=== PATIENT | male | born 1945 | race American Indian/Alaskan Native ===

== ENCOUNTER 2018-07-23 17:36 | Inpatient (IN) | payer MEDICARE, OTHER ==
[2018-07-23 17:37] VITALS: BMI 27.3
--- NOTE | 2018-07-23 18:13 | ED PDOC ---
Arrival/HPI - General Chief Complaint: Dizziness/Lightheaded Time Seen by Provider: 07/23/18 17:56 Historian: Patient, Family - History of Present Illness Narrative History of Present Illness (Text): 07/23/18 18:10 72yr old male with hx of renal failure on dialysis, CHF presents today brought in by his daughter for worsening generalized weakness, continued dizziness/unsteady gait, increasing forgetfulness over the past week or so. Patient denies headaches dizziness or weakness. No chest pain or shortness of breath. No fevers or chills. No abdominal pain. No urinary symptoms. Pt states he feels off balance. Past Medical History - Provider Review Nursing Documentation Reviewed: Yes - Travel History Have you recently traveled outside [place] w/in the past 3 mons?: No - Infectious Disease Hx of Infectious Diseases: None - Cardiac Hx Cardiac Disorders: No Hx Hypertension: Yes Hx Pacemaker: No Other/Comment: bradycardia - Pulmonary Hx Respiratory Disorders: Yes Hx Asthma: No Hx Chronic Obstructive Pulmonary Disease (COPD): No Hx Emphysema: No Hx Lung Cancer: No Hx Pneumonia: Yes Hx Pulmonary Edema: No Hx Pulmonary Embolism: No Hx Respiratory Aspiration: No Hx Respiratory Tract Infection: No Hx Sleep Apnea: No Hx Tuberculosis: No - Neurological Hx Neurological Disorder: No Hx Alzheimer's Disease: No HX Cerebrovascular Accident: No Hx Dementia: No Hx Dizziness: No Hx Meningitis: No Hx Migraine: No Hx Multiple Sclerosis: No Hx Paralysis: No - HEENT Hx HEENT Disorder: No Hx Blind: No Hx Cataracts: No Hx Deafness: No Hx Difficulty Chewing: No Hx Epistaxis: No Hx Glaucoma: No Hx Macular Degeneration: No - Renal Hx Renal Disorder: Yes (CKD IV) - Endocrine/Metabolic Hx Endocrine Disorders: No - Hematological/Oncological Hx Blood Disorders: No Hx Blood Transfusions: No Hx Blood Transfusion Reaction: No - Integumentary Hx Dermatological Disorder: No - Musculoskeletal/Rheumatological Hx Musculoskeletal Disorders: Yes Hx Arthritis: Yes Hx Degenerative Joint Disease: No Hx Falls: No Hx Fractures: No Hx Gout: Yes Hx Herniated Disk: No Hx Myasthenia Gravis: No Hx Osteoarthritis: No Hx Osteomyelitis: No Hx Osteoporosis: No Hx Rhabdomyolysis: No Hx Rheumatoid Arthritis: No Hx Spinal Stenosis: No Hx Unsteady Gait: No - Gastrointestinal Hx Gastrointestinal Disorders: No - Genitourinary/Gynecological Hx Genitourinary Disorders: Yes Hx Bladder Cancer: No Hx Bladder Stone: No Hx Hematuria: No Hx Incontinence: No Hx Prostate Cancer: Yes Hx Prostate Problems: No Hx Reproductive Disorders: No (bph,) Hx Sexually Transmitted Diseases: No Hx Urinary Tract Infection: No - Psychiatric Hx Substance Use: No - Surgical History Other/Comment: Patient states he had "Sub-mucous nasal resection" - Anesthesia Hx Anesthesia: Yes Hx Anesthesia Reactions: No Hx Malignant Hyperthermia: No - Suicidal Assessment Feels Threatened In Home Enviroment: No Family/Social History - Physician Review Nursing Documentation Reviewed: Yes Family/Social History: Unknown Family HX Smoking Status: Former Smoker Hx Alcohol Use: No Hx Substance Use: No Hx Substance Use Treatment: No Allergies/Home Meds Allergies/Adverse Reactions: Allergies No Known Allergies Allergy (Verified 09/28/11 11:08) Home Medications: Home Meds Medication Instructions Recorded Confirmed Aspirin [Aspir 81] 81 mg PO DAILY 09/28/11 02/09/14 Silodosin [Rapaflo] 8 mg PO DAILY 09/28/11 02/09/14 Simvastatin 20 mg PO DAILY 09/28/11 02/09/14 Carvedilol [Coreg] 25 mg PO DAILY 07/23/18 07/23/18 Donepezil [Aricept] 5 mg PO 07/23/18 Folic Acid/Vit B Complex and C 0.8 mg PO DAILY 07/23/18 07/23/18 [Gauri-Sai Tablet] Gabapentin [Neurontin] 100 mg PO 07/23/18 Montelukast [Singulair] 10 mg PO DAILY 07/23/18 07/23/18 Sevelamer Carbonate [Renvela] 800 mg pe PO DAILY 07/23/18 07/23/18 Review of Systems - Review of Systems Constitutional: absent: Fatigue, Fevers ENT: absent: Sore Throat, Sinus Congestion Respiratory: absent: SOB, Cough Cardiovascular: absent: Chest Pain, Palpitations Gastrointestinal: absent: Abdominal Pain, Nausea, Vomiting Genitourinary Male: absent: Dysuria, Frequency, Hematuria Musculoskeletal: absent: Arthralgias, Neck Pain Skin: absent: Rash, Pruritis Neurological: Dizziness. absent: Headache Psychiatric: absent: Anxiety, Depression Physical Exam Vital Signs Reviewed: Yes Vital Signs Temp Pulse Resp BP Pulse Ox 07/23/18 17:56 97.3 F L 70 18 172/75 H 98 07/23/18 17:39 97.3 F L 70 18 172/75 H 98 Temperature: Afebrile Blood Pressure: Hypertensive Pulse: Regular Respiratory Rate: Normal Appearance: Positive for: Well-Appearing, Non-Toxic, Comfortable Pain Distress: None Mental Status: Positive for: other (alert and oriented x 2) - Systems Exam Head: Present: Atraumatic Pupils: Present: PERRL Extroacular Muscles: Present: EOMI Mouth: Present: Moist Mucous Membranes Neck: Present: Normal Range of Motion Respiratory/Chest: Present: Clear to Auscultation, Good Air Exchange. No: Respi ratory Distress, Accessory Muscle Use Cardiovascular: Present: Regular Rate and Rhythm, Normal S1, S2. No: Murmurs Abdomen: No: Tenderness, Distention, Peritoneal Signs, Rebound, Guarding Back: Present: Normal Inspection Upper Extremity: Present: Normal ROM Lower Extremity: Present: Normal ROM Neurological: Present: Motor Func Grossly Intact, Normal Sensory Function Skin: Present: Warm, Dry, Normal Color. No: Rashes Psychiatric: Present: Alert Medical Decision Making ED Course and Treatment: 07/23/18 18:12 72yr old male with dizziness and generalized weakness worsening x 1 week vitals stable. slightly hypertensive. denies any cp or sob. cbc: wnl cmp elevated bun/cr trop: 0.09 ekg; electronic ventricular pacemaker at 77 bpm cxr; slight vascular congestion head ct; FINDINGS: BRAIN No acute intraparenchymal hemorrhage. No mass lesion. No CT evidence for acute territorial infarct. No midline shift or extra-axial collections. VENTRICLES: No hydrocephalus. ORBITS: The orbits are unremarkable. SINUSES AND MASTOIDS: The paranasal sinuses and mastoid air cells are clear. BONES: No fracture. SOFT TISSUES: Unremarkable. IMPRESSION: No acute intracranial abnormality. Electronically signed on Jul 23, 2018 7:23:38 PM EDT by: Emmanuel Jorge M.D., Certified by [facility], Diagnostic Radiology asa given Po 07/23/18 20:[address] collier; accepts obs admission to remote tele. impression; dizziness, AMS, ESRD on dialysis admit remote tele obs. Reassessment Condition: Re-examined, Unchanged - RAD Interpretation Radiology Orders: 07/23/18 18:06 HEAD W/O CONTRAST [CT] Stat CHEST PORTABLE [RAD] Stat Disposition/Present on Arrival - Present on Arrival Any Indicators Present on Arrival: No History of DVT/PE: No History of Uncontrolled Diabetes: No Urinary Catheter: No History of Decub. Ulcer: No History Surgical Site Infection Following: None - Disposition Have Diagnosis and Disposition been Completed?: Yes Diagnosis: Dizziness, ESRD (end stage renal disease) on dialysis, Altered mental status Disposition: HOSPITALIZED Disposition Time: 18:58 Patient Plan: Observation Patient Problems: Current Active Problems Problem Status Onset Dizziness Acute ESRD (end stage renal disease) on dialysis Acute Condition: FAIR
[2018-07-23 18:51] LABS: BASO # 0.01 K/mm3 (0.0-2.0); BASO % 0.2 % (0.0-3.0); EOS % 0.3 % (1.5-5.0); HEMOGLOBIN 11.4 g/dL (14.0-18.0); LYMPH % 15.8 % (22.0-35.0); MEAN CELL VOLUME 84.1 fl (80.0-105.0); MEAN CORPUSCULAR HEMOGLOBIN 26.3 pg (25.0-35.0); MEAN CORPUSCULAR HGB CONC 31.3 g/dl (31.0-37.0); MEAN PLATELET VOLUME 10.6 fl (7.0-11.0); MONO # 0.6 (0.1-0.6); RBC 4.33 10^6/uL (3.5-6.1); RED CELL DISTRIBUTION WIDTH 16.4 % (11.5-14.5); WHITE BLOOD COUNT 6.1 10^3/uL (4.5-11.0)
[2018-07-23 18:56] LABS: INR 1.11; PARTIAL THROMBOPLASTIN TIME 29.4 Seconds (26.9-38.3); PROTHROMBIN TIME 12.3 SECONDS (9.4-12.5)
[2018-07-23 18:57] LABS: TROPONIN I 0.09 ng/mL
[2018-07-23 19:31] LABS: ALB/GLOB RATIO 1.1 (1.1-1.8); ALBUMIN 3.9 g/dL (3.0-4.8); CALCIUM 9.3 mg/dL (8.4-10.5)
--- NOTE | 2018-07-23 22:18 | CP.PCM.HP ---
<Ari Tang - Last Filed: 07/23/18 22:54> History of Present Illness - History of Present Illness History of Present Illness: Ari Tang DO, PGY-1 Hospitalist Admission History and Physical for Dr. 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 On examination, patient is alert to self and was able to recall the month but unable to recall the year and was not oriented to situation. History was obtained by speaking with daughter and EMR review. Per patient's daughter, patient had HD last Tuesday and presented to PMD with concern of worsening weakness/confusion on Tuesday. Since then, his generalized weakness/confusion has worsened. 12-point ROS unable to be obtained due to patient's mental status. 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), CKD (on MWF HD), severe pulmonary HTN (last TTE in 2013), and HTN Past Surgical History: PPM insertion Allergies: NKA Home medications: Simvastatin 20 mg daily, Rapaflo 8 mg daily, Renvela 800 mg AC, Singulair 10 mg daily, Gabapentin 100 mg daily, Folic acid 0.8 mg daily, Aricept 5 mg daily, Coreg 25 mg daily, ASA 81 mg daily Family History: reviewed, non-contributory Social History: denies current or prior tobacco, EtOH, drug use Present on Admission - Present on Admission Any Indicators Present on Admission: No History of DVT/PE: No History of Uncontrolled Diabetes: No Urinary Catheter: No Decubitus Ulcer Present: No Review of Systems - Review of Systems Systems not reviewed;Unavailable: Altered Mental Status Past Patient History - Infectious Disease Hx of Infectious Diseases: None - Past Medical History & Family History Past Medical History?: Yes - Past Social History Smoking Status: Former Smoker - CARDIAC Hx Cardiac Disorders: No Hx Hypertension: Yes Hx Pacemaker: No Other/Comment: bradycardia - PULMONARY Hx Respiratory Disorders: Yes Hx Asthma: No Hx Chronic Obstructive Pulmonary Disease (COPD): No Hx Emphysema: No Hx Lung Cancer: No Hx Pneumonia: Yes Hx Pulmonary Edema: No Hx Pulmonary Embolism: No Hx Respiratory Aspiration: No Hx Respiratory Tract Infection: No Hx Sleep Apnea: No Hx Tuberculosis: No - NEUROLOGICAL Hx Neurological Disorder: No Hx Alzheimer's Disease: No HX Cerebrovascular Accident: No Hx Dementia: No Hx Dizziness: No Hx Meningitis: No Hx Migraine: No Hx Multiple Sclerosis: No Hx Paralysis: No - HEENT Hx HEENT Problems: No Hx Blind: No Hx Cataracts: No Hx Deafness: No Hx Difficulty Chewing: No Hx Epistaxis: No Hx Glaucoma: No Hx Macular Degeneration: No - RENAL Hx Chronic Kidney Disease: Yes (CKD IV) - ENDOCRINE/METABOLIC Hx Endocrine Disorders: No - HEMATOLOGICAL/ONCOLOGICAL Hx Blood Disorders: No Hx Blood Transfusions: No Hx Blood Transfusion Reaction: No - INTEGUMENTARY Hx Dermatological Problems: No - MUSCULOSKELETAL/RHEUMATOLOGICAL Hx Musculoskeletal Disorders: Yes Hx Arthritis: Yes Hx Degenerative Joint Disease: No Hx Falls: No Hx Fractures: No Hx Gout: Yes Hx Herniated Disk: No Hx Myasthenia Gravis: No Hx Osteoarthritis: No Hx Osteomyelitis: No Hx Osteoporosis: No Hx Rhabdomyolysis: No Hx Rheumatoid Arthritis: No Hx Spinal Stenosis: No Hx Unsteady Gait: No - GASTROINTESTINAL Hx Gastrointestinal Disorders: No - GENITOURINARY/GYNECOLOGICAL Hx Genitourinary Disorders: Yes Hx Bladder Cancer: No Hx Bladder Stone: No Hx Hematuria: No Hx Incontinence: No Hx Prostate Cancer: Yes Hx Prostate Problems: No Hx Reproductive Disorders: No (bph,) Hx Sexually Transmitted Disorders: No Hx Urinary Tract Infection: No - PSYCHIATRIC Hx Substance Use: No - SURGICAL HISTORY Other/Comment: Patient states he had "Sub-mucous nasal resection" - ANESTHESIA Hx Anesthesia: Yes Hx Anesthesia Reactions: No Hx Malignant Hyperthermia: No Meds Allergies/Adverse Reactions: Allergies Allergy/AdvReac Type Severity Reaction Status Date / Time No Known Allergies Allergy Verified 09/28/11 11:08 Physical Exam - Constitutional Appears: No Acute Distress Additional comments: Alert to self and able to answer the month but unable to answer year and not oriented to situation - Head Exam Head Exam: ATRAUMATIC, NORMOCEPHALIC - Eye Exam Eye Exam: EOMI, PERRL - ENT Exam ENT Exam: Mucous Membranes Moist - Neck Exam Neck exam: Positive for: Full Rom, Normal Inspection - Respiratory Exam Respiratory Exam: Clear to Auscultation Bilateral, NORMAL BREATHING PATTERN. absent: Accessory Muscle Use, Decreased Breath Sounds, Rhonchi, Wheezes, Respiratory Distress - Cardiovascular Exam Cardiovascular Exam: REGULAR RHYTHM, RRR, +S1, +S2. absent: Diastolic murmur, Gallop, Rubs, Systolic Murmur Additional comments: PPM visualized left upper sternum - GI/Abdominal Exam GI & Abdominal Exam: Normal Bowel Sounds, Soft. absent: Guarding, Rebound, Tenderness - Extremities Exam Extremities exam: Positive for: full ROM, pedal pulses present. Negative for: pedal edema - Back Exam Back exam: NORMAL INSPECTION - Neurological Exam Neurological exam: Alert, Altered, CN II-XII Intact Additional comments: Muscle strength 5/5 b/l upper and lower extremities, no sensory deficits - Psychiatric Exam Psychiatric exam: Anxious - Skin Skin Exam: Dry, Warm Results - Vital Signs Recent Vital Signs: Last Vital Signs Temp 97.3 F L 07/23/18 17:56 Pulse 72 07/23/18 21:50 Resp 18 07/23/18 21:50 BP 148/60 07/23/18 21:50 Pulse Ox 99 07/23/18 21:50 - Labs Result Diagrams: 07/23/18 18:15 07/23/18 18:15 Labs: Laboratory Results - last 24 hr 07/23/18 07/23/18 07/23/18 18:15 18:15 18:15 WBC 6.1 RBC 4.33 Hgb 11.4 L Hct 36.4 L MCV 84.1 MCH 26.3 MCHC 31.3 RDW 16.4 H Plt Count 218 MPV 10.6 Neut % (Auto) 74.7 H Lymph % (Auto) 15.8 L Angelina % (Auto) 9.0 H Eos % (Auto) 0.3 L Baso % (Auto) 0.2 Lymph # (Auto) 1.0 L Angelina # (Auto) 0.6 Eos # (Auto) 0.0 Baso # (Auto) 0.01 Absolute Neuts (auto) 4.58 PT 12.3 INR 1.11 APTT 29.4 Sodium 143 Potassium 3.7 Chloride 103 Carbon Dioxide 28 Anion Gap 16 BUN 40 H Creatinine 11.1 H* Est GFR ( Amer) 6 Est GFR (Non-Af Amer) 5 Random Glucose 112 H Calcium 9.3 Total Bilirubin 0.5 AST 20 ALT 10 Alkaline Phosphatase 79 Lactate Dehydrogenase 428 Total Creatine Kinase 52 Troponin I 0.09 Total Protein 7.3 Albumin 3.9 Globulin 3.4 Albumin/Globulin Ratio 1.1 Assessment & Plan - Assessment and Plan (Free Text) Assessment: 72 yo M with PMH of 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 and contact whether MRI is safe prior to ordering MRI Screening video EEG F/u orthostatic VS results to r/o dehydration/excessive fluid loss from HD Will straight cath x 1 with UA and Urine cx F/u cisneros cx, procal F/u B12, folate levels Trend troponin q6h x 2 PT evaluate and treat for weakness/gait instability Neurology consult placed, all recs appreciated Severe Pulmonary HTN Identified on TTE completed for admission in 02/2014 Patient was admitted at that time with SOB Unclear etiology, may be 2/2 diastolic CHF Patient currently denies CP, SOB Will repeat TTE CKD HD Dependent Patient normally gets MWF dialysis BUN/Cr elevated this admission but unclear baseline Lower suspicion for uremic encephalitis with BUN of 40 Will need arrangements for HD tomorrow Nephrology consult placed, all recs appreciated DVT/GI PPX: SC heparin/protonix Full Code NPO pending swallow evaluation Monitor on telemetry Patient seen, examined with, and plan discussed with my attending Dr. Myles Tang, Karina.O. IM Resident PGY-1 <Micheal Bueno - Last Filed: 07/24/18 06:45> Results - Vital Signs Recent Vital Signs: Last Vital Signs Temp 98.2 F 07/24/18 06:00 Pulse 83 07/24/18 06:00 Resp 20 07/24/18 06:00 BP 142/83 07/24/18 06:00 Pulse Ox 97 07/24/18 06:00 - Labs Result Diagrams: 07/23/18 18:15 07/23/18 18:15 Labs: Laboratory Results - last 24 hr 07/23/18 07/23/18 07/23/18 18:15 18:15 18:15 WBC 6.1 RBC 4.33 Hgb 11.4 L Hct 36.4 L MCV 84.1 MCH 26.3 MCHC 31.3 RDW 16.4 H Plt Count 218 MPV 10.6 Neut % (Auto) 74.7 H Lymph % (Auto) 15.8 L Angelina % (Auto) 9.0 H Eos % (Auto) 0.3 L Baso % (Auto) 0.2 Lymph # (Auto) 1.0 L Angelina # (Auto) 0.6 Eos # (Auto) 0.0 Baso # (Auto) 0.01 Absolute Neuts (auto) 4.58 PT 12.3 INR 1.11 APTT 29.4 pCO2 pO2 HCO3 ABG pH ABG Total CO2 ABG O2 Saturation ABG O2 Content ABG Base Excess ABG Hemoglobin ABG Carboxyhemoglobin POC ABG HHb (Measured) ABG Methemoglobin ABG O2 Capacity Hgb O2 Saturation FiO2 Sodium 143 Potassium 3.7 Chloride 103 Carbon Dioxide 28 Anion Gap 16 BUN 40 H Creatinine 11.1 H* Est GFR ( Amer) 6 Est GFR (Non-Af Amer) 5 Random Glucose 112 H Calcium 9.3 Total Bilirubin 0.5 AST 20 ALT 10 Alkaline Phosphatase 79 Lactate Dehydrogenase 428 Total Creatine Kinase 52 Troponin I 0.09 Total Protein 7.3 Albumin 3.9 Globulin 3.4 Albumin/Globulin Ratio 1.1 07/23/18 07/24/18 23:30 04:59 WBC RBC Hgb Hct MCV MCH MCHC RDW Plt Count MPV Neut % (Auto) Lymph % (Auto) Angelina % (Auto) Eos % (Auto) Baso % (Auto) Lymph # (Auto) Angelina # (Auto) Eos # (Auto) Baso # (Auto) Absolute Neuts (auto) PT INR APTT pCO2 40 pO2 85.0 HCO3 29.1 H ABG pH 7.47 H ABG Total CO2 30.3 H ABG O2 Saturation 97.5 ABG O2 Content 14.4 L ABG Base Excess 5.0 H ABG Hemoglobin 10.7 L ABG Carboxyhemoglobin 1.5 POC ABG HHb (Measured) 2.4 ABG Methemoglobin 1.0 ABG O2 Capacity 14.8 L Hgb O2 Saturation 95.1 FiO2 21.0 Sodium Potassium Chloride Carbon Dioxide Anion Gap BUN Creatinine Est GFR ( Amer) Est GFR (Non-Af Amer) Random Glucose Calcium Total Bilirubin AST ALT Alkaline Phosphatase Lactate Dehydrogenase Total Creatine Kinase Troponin I 0.10 Total Protein Albumin Globulin Albumin/Globulin Ratio Attending/Attestation - Attestation I have personally seen and examined this patient.: Yes I have fully participated in the care of the patient.: Yes I have reviewed all pertinent clinical information: Yes Notes (Text): 07/24/18 06:44 Seen and examined and discussed with resident. Exam significant for altered mental status, unclear speech and keeps on repeating self. A&P as above.
[2018-07-24 05:05] LABS: ARTERIAL BLOOD GAS HCO3 29.1 mmol/L (21-28); ARTERIAL BLOOD GAS HEMOGLOBIN 10.7 g/dL (11.7-17.4); ARTERIAL BLOOD GAS O2 CAPACITY 14.8 mL/dl (16-24); ARTERIAL BLOOD GAS O2 CONTENT 14.4 ML/dl (15-23); ARTERIAL BLOOD GAS O2 SAT 97.5 % (95-98); ARTERIAL BLOOD GAS PCO2 40 mm/Hg (35-45); ARTERIAL BLOOD GAS PH 7.47 (7.35-7.45); ARTERIAL BLOOD GAS TCO2 30.3 mmol.L (22-28)
[2018-07-24] MEDS: Pantoprazole 40 mg EC Tab PO SCH (05:29)
[2018-07-24 07:35] LABS: BASO # 0.03 K/mm3 (0.0-2.0); BASO % 0.5 % (0.0-3.0); EOS # 0.1 (0.0-0.7); EOS % 1.4 % (1.5-5.0); HEMOGLOBIN 10.5 g/dL (14.0-18.0); LYMPH # 1.3 (1.2-3.4); LYMPH % 22.3 % (22.0-35.0); MEAN CELL VOLUME 83.7 fl (80.0-105.0); MEAN CORPUSCULAR HEMOGLOBIN 25.9 pg (25.0-35.0); MEAN PLATELET VOLUME 11.3 fl (7.0-11.0); MONO # 0.5 (0.1-0.6); MONO % 7.9 % (1.0-6.0); RBC 4.05 10^6/uL (3.5-6.1); RED CELL DISTRIBUTION WIDTH 16.7 % (11.5-14.5); WHITE BLOOD COUNT 5.7 10^3/uL (4.5-11.0)
[2018-07-24 08:00] LABS: TROPONIN I 0.11 ng/mL
[2018-07-24 08:08] LABS: LDL CHOLESTEROL 51 mg/dL (0-129)
[2018-07-24 08:10] LABS: ALB/GLOB RATIO 1.1 (1.1-1.8); ALBUMIN 3.7 g/dL (3.0-4.8); ALT/SGPT < 6 U/L (7-56); AST/SGOT 12 U/L (17-59); BLOOD UREA NITROGEN 46 mg/dL (7-21); CALCIUM 9.4 mg/dL (8.4-10.5); GFR NON-AFRICAN AMERICAN 4; HDL CHOLESTEROL 55 mg/dL (29-60)
[2018-07-24] MEDS: Multivitamin Vitamin B Complex (Nephro-Vite) Tab PO SCH (09:17)
--- NOTE | 2018-07-24 09:17 | CT ---
Date of service: 07/23/2018 PROCEDURE: CT HEAD WITHOUT CONTRAST. HISTORY: Dizziness and weakness. COMPARISON: None available. TECHNIQUE: Axial computed tomography images were obtained through the head/brain without intravenous contrast. Radiation dose: Total exam DLP = 879.49 mGy-cm. This CT exam was performed using one or more of the following dose reduction techniques: Automated exposure control, adjustment of the mA and/or kV according to patient size, and/or use of iterative reconstruction technique. FINDINGS: HEMORRHAGE: No acute parenchymal, subarachnoid nor extra-axial hemorrhage. BRAIN: Moderate diffuse and confluent chronic periventricular white matter ischemic changes seen extending peripherally into the deep and subcortical white matter both cerebral hemispheres. There are multiple more discrete chronic appearing lacunar type infarcts scattered about both basal nuclei. Note that the possibility of a small hyperacute infarct not excluded. Moderate to fairly significant generalized volume loss Vascular calcifications both carotid siphons No obvious parenchymal nor extra-axial masses or collections seen on this noncontrast exam VENTRICLES: No obstructive hydrocephalus. CALVARIUM: Calvarium intact. PARANASAL SINUSES: Unremarkable as visualized. No significant inflammatory changes. MASTOID AIR CELLS: Unremarkable as visualized. No inflammatory changes. OTHER FINDINGS: None. IMPRESSION: Moderate diffuse and confluent chronic periventricular white matter ischemic changes seen extending peripherally into the deep and subcortical white matter both cerebral hemispheres. There are multiple more discrete chronic appearing lacunar type infarcts scattered about both basal nuclei. Note that the possibility of a small hyperacute infarct not excluded. Moderate to fairly significant generalized volume loss
--- NOTE | 2018-07-24 09:46 | RAD ---
Date of service: 07/23/2018 HISTORY: dizziness COMPARISON: 09/29/2011 FINDINGS: LUNGS: No active pulmonary disease. PLEURA: No significant pleural effusion identified, no pneumothorax apparent. CARDIOVASCULAR: No aortic atherosclerotic calcification present. Mild cardiomegaly. Mild vascular congestion. Dual lead pacemaker OSSEOUS STRUCTURES: No significant abnormalities. VISUALIZED UPPER ABDOMEN: Normal. OTHER FINDINGS: None. IMPRESSION: Mild cardiomegaly and mild vascular congestion
--- NOTE | 2018-07-24 09:49 | CARD ---
APPROVED REPORT Date of service: 07/23/2018 EKG Measurement Heart [id number] <Conclusion> Poor data quality, interpretation may be adversely affected Electronic ventricular pacemaker
[2018-07-24 13:13] LABS: FOLATE 17.4 ng/mL
--- NOTE | 2018-07-24 13:29 | PCM.EEG ---
Electroencephalogram Report - Electroencephalogram Report Procedure Date: 07/24/18 Medication: ASA, Aricept, Ondansetron Interpretation: Technical Information: This was a 16 -channel EEG, 1-channel EKG routine EEG performed using an [employer] machine. Electrodes were applied using the 10/20 international placement system. Start; 10;07 End; 10;52 Total; 45 min Clinical Information: alter mental status During resting wakefulness there was a symmetric posterior dominant rhythm at 8.5-9.5 Hz, 30-50 uV, which was reactive to eye opening and closing. Drowsiness (1015) was associated with fragmentation of the posterior dominant rhythm and with slow roving eye movements. Hyperventilation was performe no changes in the record. Photic stimulation was performed and there were no changes on the record. Focal abnormality; none ECG was associated with a normal sinus rhythm. Impression: This is a normal awake and drowsy electroencephalogram.
--- NOTE | 2018-07-24 14:14 | CP.PCM.CON ---
<Valente Rubio - Last Filed: 07/24/18 14:23> History of Present Illness - History of Present Illness History of Present Illness: Valente Rubio PGY2 Neurology Consult Note for Dr. 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 Patient is alert to self and month, but not the year. He is unable to recall different things and unable to do perform simpl e cognitive functions. Patient denies any complaints, no chest pain, SOB, fever, chills, blurry vision, headaches or any other complaints at this time. 12-point ROS unable to be obtained due to patient's mental status. 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 absent: Chest Pain - Neurological Neurological: absent: Abnormal Speech, Confusion, Disequilibrium, Dizziness, Numbness, Focal Weakness, Frequent Falls, Headaches, Syncope, Tingling, Vertigo, Weakness Past Patient History - Infectious Disease Hx of Infectious Diseases: None - Past Medical History & Family History Past Medical History?: Yes - Past Social History Smoking Status: Former Smoker - CARDIAC Hx Cardiac Disorders: Yes (bradycardia, 3rd degree AV block, s/p pacemaker placement.) Hx Congestive Heart Failure: Yes Hx Hypertension: Yes - PULMONARY Hx Respiratory Disorders: Yes Hx Asthma: No Hx Chronic Obstructive Pulmonary Disease (COPD): No Hx Emphysema: No Hx Lung Cancer: No Hx Pneumonia: Yes Hx Pulmonary Edema: No Hx Pulmonary Embolism: No Hx Respiratory Aspiration: No Hx Respiratory Tract Infection: No Hx Sleep Apnea: No Hx Tuberculosis: No - NEUROLOGICAL Hx Neurological Disorder: No Hx Alzheimer's Disease: No HX Cerebrovascular Accident: No Hx Dementia: No Hx Dizziness: No Hx Meningitis: No Hx Migraine: No Hx Multiple Sclerosis: No Hx Paralysis: No - HEENT Hx HEENT Problems: No Hx Blind: No Hx Cataracts: No Hx Deafness: No Hx Difficulty Chewing: No Hx Epistaxis: No Hx Glaucoma: No Hx Macular Degeneration: No - RENAL Hx Renal Failure: Yes (on HD M,W,F.) - ENDOCRINE/METABOLIC Hx Endocrine Disorders: No - HEMATOLOGICAL/ONCOLOGICAL Hx Blood Disorders: No Hx Blood Transfusions: No Hx Blood Transfusion Reaction: No - INTEGUMENTARY Hx Dermatological Problems: No - MUSCULOSKELETAL/RHEUMATOLOGICAL Hx Arthritis: Yes - GASTROINTESTINAL Hx Gastrointestinal Disorders: No - GENITOURINARY/GYNECOLOGICAL Hx Genitourinary Disorders: Yes Hx Bladder Cancer: No Hx Bladder Stone: No Hx Hematuria: No Hx Incontinence: No Hx Prostate Cancer: Yes Hx Prostate Problems: No Hx Reproductive Disorders: No (bph,) Hx Sexually Transmitted Disorders: No Hx Urinary Tract Infection: No - PSYCHIATRIC Hx Substance Use: No - SURGICAL HISTORY Other/Comment: Patient states he had "Sub-mucous nasal resection" - ANESTHESIA Hx Anesthesia: Yes Hx Anesthesia Reactions: No Hx Malignant Hyperthermia: No Meds Allergies/Adverse Reactions: Allergies Allergy/AdvReac Type Severity Reaction Status Date / Time No Known Allergies Allergy Verified 09/28/11 11:08 - Medications Medications: Current Medications Acetaminophen (Tylenol 325mg Tab) 650 mg PO Q6H PRN PRN Reason: Pain, Mild (1-3) Aspirin (Ecotrin) 81 mg PO DAILY [facility] Last Admin: 07/24/18 09:17 Dose: 81 mg Atorvastatin Calcium (Lipitor) 10 mg PO DIN [facility] Donepezil HCl (Aricept) 5 mg PO DAILY [facility] Last Admin: 07/24/18 09:17 Dose: 5 mg Heparin Sodium (Porcine) (Heparin) 5,000 units SC Q8 [facility]; Protocol Last Admin: 07/24/18 05:29 Dose: 5,000 units Montelukast Sodium (Singulair) 10 mg PO DAILY [facility] Last Admin: 07/24/18 09:17 Dose: 10 mg Ondansetron HCl (Zofran Inj) 4 mg IVP Q6H PRN PRN Reason: Nausea/Vomiting Pantoprazole Sodium (Protonix Ec Tab) 40 mg PO 0600 [facility] Last Admin: 07/24/18 05:29 Dose: 40 mg Sevelamer HCl (Renagel) 800 mg PO DAILY [facility] Last Admin: 07/24/18 09:17 Dose: 800 mg Vitamin B Complex/Vit C/Folic Acid (Nephro-Sai) 1 tab PO DAILY [facility] Last Admin: 07/24/18 09:17 Dose: 1 tab Physical Exam - Constitutional Appears: Well, Non-toxic, No Acute Distress - Head Exam Head Exam: ATRAUMATIC, NORMAL INSPECTION, NORMOCEPHALIC - Eye Exam Eye Exam: EOMI, Normal appearance - ENT Exam ENT Exam: Mucous Membranes Moist - Respiratory Exam Respiratory Exam: Clear to Auscultation Bilateral, NORMAL BREATHING PATTERN - Cardiovascular Exam Cardiovascular Exam: +S1, +S2 - GI/Abdominal Exam GI & Abdominal Exam: Soft - Neurological Exam Neurological exam: Alert, CN II-XII Intact Additional comments: Unable to recall year, or past history, cerebellar function in tact, motor upper and lower intact B/L, no focal neurological deficits Results - Vital Signs Recent Vital Signs: Last Vital Signs Temp 98.2 F 07/24/18 06:00 Pulse 77 07/24/18 10:23 Resp 16 07/24/18 10:23 BP 148/74 07/24/18 10:23 Pulse Ox 96 07/24/18 10:23 - Labs Result Diagrams: 07/24/18 07:00 07/24/18 07:00 Labs: Laboratory Results - last 24 hr 07/23/18 07/23/18 07/23/18 18:15 18:15 18:15 WBC 6.1 RBC 4.33 Hgb 11.4 L Hct 36.4 L MCV 84.1 MCH 26.3 MCHC 31.3 RDW 16.4 H Plt Count 218 MPV 10.6 Neut % (Auto) 74.7 H Lymph % (Auto) 15.8 L [place] % (Auto) 9.0 H Eos % (Auto) 0.3 L Baso % (Auto) 0.2 Lymph # (Auto) 1.0 L [place] # (Auto) 0.6 Eos # (Auto) 0.0 Baso # (Auto) 0.01 Absolute Neuts (auto) 4.58 PT 12.3 INR 1.11 APTT 29.4 pCO2 pO2 HCO3 ABG pH ABG Total CO2 ABG O2 Saturation ABG O2 Content ABG Base Excess ABG Hemoglobin ABG Carboxyhemoglobin POC ABG HHb (Measured) ABG Methemoglobin ABG O2 Capacity Hgb O2 Saturation FiO2 Sodium 143 Potassium 3.7 Chloride 103 Carbon Dioxide 28 Anion Gap 16 BUN 40 H Creatinine 11.1 H* Est GFR ( Amer) 6 Est GFR (Non-Af Amer) 5 Random Glucose 112 H Hemoglobin A1c Calcium 9.3 Phosphorus Magnesium Total Bilirubin 0.5 AST 20 ALT 10 Alkaline Phosphatase 79 Lactate Dehydrogenase 428 Total Creatine Kinase 52 Troponin I 0.09 Total Protein 7.3 Albumin 3.9 Globulin 3.4 Albumin/Globulin Ratio 1.1 Triglycerides Cholesterol LDL Cholesterol Direct HDL Cholesterol Vitamin B12 Folate TSH 3rd Generation 07/23/18 07/24/18 07/24/18 23:30 04:59 07:00 WBC 5.7 RBC 4.05 Hgb 10.5 L Hct 33.9 L MCV 83.7 MCH 25.9 MCHC 31.0 RDW 16.7 H Plt Count 222 MPV 11.3 H Neut % (Auto) 67.9 Lymph % (Auto) 22.3 [place] % (Auto) 7.9 H Eos % (Auto) 1.4 L Baso % (Auto) 0.5 Lymph # (Auto) 1.3 [place] # (Auto) 0.5 Eos # (Auto) 0.1 Baso # (Auto) 0.03 Absolute Neuts (auto) 3.87 PT INR APTT pCO2 40 pO2 85.0 HCO3 29.1 H ABG pH 7.47 H ABG Total CO2 30.3 H ABG O2 Saturation 97.5 ABG O2 Content 14.4 L ABG Base Excess 5.0 H ABG Hemoglobin 10.7 L ABG Carboxyhemoglobin 1.5 POC ABG HHb (Measured) 2.4 ABG Methemoglobin 1.0 ABG O2 Capacity 14.8 L Hgb O2 Saturation 95.1 FiO2 21.0 Sodium Potassium Chloride Carbon Dioxide Anion Gap BUN Creatinine Est GFR ( Amer) Est GFR (Non-Af Amer) Random Glucose Hemoglobin A1c Calcium Phosphorus Magnesium Total Bilirubin AST ALT Alkaline Phosphatase Lactate Dehydrogenase Total Creatine Kinase Troponin I 0.10 Total Protein Albumin Globulin Albumin/Globulin Ratio Triglycerides Cholesterol LDL Cholesterol Direct HDL Cholesterol Vitamin B12 Folate TSH 3rd Generation 07/24/18 07/24/18 07/24/18 07:00 07:00 07:00 WBC RBC Hgb Hct MCV MCH MCHC RDW Plt Count MPV Neut % (Auto) Lymph % (Auto) [place] % (Auto) Eos % (Auto) Baso % (Auto) Lymph # (Auto) [place] # (Auto) Eos # (Auto) Baso # (Auto) Absolute Neuts (auto) PT INR APTT pCO2 pO2 HCO3 ABG pH ABG Total CO2 ABG O2 Saturation ABG O2 Content ABG Base Excess ABG Hemoglobin ABG Carboxyhemoglobin POC ABG HHb (Measured) ABG Methemoglobin ABG O2 Capacity Hgb O2 Saturation FiO2 Sodium 145 Potassium 3.9 Chloride 104 Carbon Dioxide 28 Anion Gap 17 BUN 46 H Creatinine 12.3 H* Est GFR ( Amer) 5 Est GFR (Non-Af Amer) 4 Random Glucose 97 Hemoglobin A1c 5.1 Calcium 9.4 Phosphorus 4.0 Magnesium 2.3 H Total Bilirubin 0.4 AST 12 L D ALT < 6 L Alkaline Phosphatase 72 Lactate Dehydrogenase Total Creatine Kinase Troponin I 0.11 Total Protein 7.0 Albumin 3.7 Globulin 3.3 Albumin/Globulin Ratio 1.1 Triglycerides 94 Cholesterol 164 LDL Cholesterol Direct 51 HDL Cholesterol 55 Vitamin B12 859 Folate 17.4 TSH 3rd Generation 0.20 L Assessment & Plan - Assessment and Plan (Free Text) Plan: Confusion likely secondary to worsening Dementia -no focal deficits -CT head negative for acute pathalogy -aricept increased to 10mg daily -cannot get MRI due to pacemaker -Screening video EEG -F/u B12, folate levels -PT evaluate and treat for weakness/gait instability -no need for seizure prophylaxis as patient likely did not have seizure event <Tamara Tabor - Last Filed: 07/26/18 21:51> Meds - Medications Medications: Current Medications Acetaminophen (Tylenol 325mg Tab) 650 mg PO Q6H PRN PRN Reason: Pain, Mild (1-3) Aspirin (Ecotrin) 81 mg PO DAILY [facility] Last Admin: 07/26/18 12:39 Dose: 81 mg Atorvastatin Calcium (Lipitor) 10 mg PO DIN [facility] Last Admin: 07/26/18 18:27 Dose: 10 mg Donepezil HCl (Aricept) 10 mg PO DAILY [facility] Last Admin: 07/26/18 12:39 Dose: 10 mg Heparin Sodium (Porcine) (Heparin) 5,000 units SC Q8 [facility]; Protocol Last Admin: 07/26/18 18:26 Dose: 5,000 units Montelukast Sodium (Singulair) 10 mg PO DAILY [facility] Last Admin: 07/26/18 12:40 Dose: 10 mg Ondansetron HCl (Zofran Inj) 4 mg IVP Q6H PRN PRN Reason: Nausea/Vomiting Pantoprazole Sodium (Protonix Ec Tab) 40 mg PO 0600 [facility] Last Admin: 07/26/18 06:05 Dose: 40 mg Sevelamer HCl (Renagel) 800 mg PO DAILY [facility] Last Admin: 07/26/18 12:39 Dose: 800 mg Vitamin B Complex/Vit C/Folic Acid (Nephro-Sai) 1 tab PO DAILY [facility] Last Admin: 07/26/18 12:39 Dose: 1 tab Results - Vital Signs Recent Vital Signs: Last Vital Signs Temp 97.7 F 07/26/18 08:12 Pulse 69 07/26/18 08:12 Resp 20 07/26/18 08:12 BP 118/78 07/26/18 08:12 Pulse Ox 96 07/26/18 08:12 - Labs Result Diagrams: 07/26/18 06:10 07/26/18 06:10 Labs: Laboratory Results - last 24 hr 07/26/18 07/26/18 06:10 06:10 WBC 6.3 RBC 4.35 Hgb 11.4 L Hct 36.2 L MCV 83.2 MCH 26.2 MCHC 31.5 RDW 17.0 H Plt Count 246 MPV 10.9 Neut % (Auto) 52.3 Lymph % (Auto) 31.5 [place] % (Auto) 13.6 H Eos % (Auto) 2.1 Baso % (Auto) 0.5 Lymph # (Auto) 2.0 [place] # (Auto) 0.9 H Eos # (Auto) 0.1 Baso # (Auto) 0.03 Absolute Neuts (auto) 3.28 Sodium 137 Potassium 3.9 Chloride 97 L Carbon Dioxide 29 Anion Gap 15 BUN 52 H Creatinine 11.3 H* D Est GFR ( Amer) 5 Est GFR (Non-Af Amer) 4 Random Glucose 72 Calcium 9.5 Total Bilirubin 0.4 AST 21 ALT 10 Alkaline Phosphatase 78 Total Protein 6.8 Albumin 3.8 Globulin 3.0 Albumin/Globulin Ratio 1.2 Assessment & Plan - Assessment and Plan (Free Text) Plan: All medical record entries made by the Resident were at my direction and personally dictated by me. I have reviewed the chart and agree that the record accurately reflects my personal performance of the history, physical exam, medical decision making, and the department course for this patient. I have also personally directed, reviewed, and agree with the discharge instructions and disposition. MR Concepcion is a 72 yr old male who presents with tremors not likely to be seizures, and a history of dementia. He appears to not understand his pathology nor is he able to describe what brought him into the hospital. MRI cannot be done due to pacemaker. We will treat dementia and follow accordingly. DR. Tabor Neurology
--- NOTE | 2018-07-24 15:11 | CP.PCM.CON ---
History of Present Illness - History of Present Illness History of Present Illness: Nephrology Consultation Note: Assessment: Stable dementia pulmonary vasc congestion uncontrolled HTN with urgency Hypertensive Chronic Kidney Disease (I12.0) End stage renal disease (N18.6) dependence on hemodialysis (Z99.2) (MWF) via AVF Anemia (D64.9), Hyperphosphatemia (E83.39), Secondary Hyperparathyroidism (E21.1), HTN (I12.0) Plan: Will plan for HD today as ordered. Continue with Nephrovite 1 tab/day. PRBC as needed for anemia. not on UZMA with dialysis as last Hb 10.5 Continue with phos binders, last phos level 4 BP control with meds as ordered. Patient not on RAAS gomez hence will add losartan Glycemic control, Dialysis consistent diet Further work up/management as per primary team Dose meds/antibiotics (if needed) for ESRD status. Avoid fleets enema/magnesium based laxatives. Neurology following Thanks for allowing me to participate in care of your patient. Will follow patient with you. Please call if any Qs Dr Bertrand Winkler Office: [phone] Chief Complaint; weakness HPI: Pt is a 72 M with hx of ESRD on hemodialysis (MWF) via AVF, last dialysis tuesday, chronic anemia, hyperphosphatemia, secondary hyperparathyroidism, hypertension dementia, AV block s/p PPM presented with complaints of worsening confusion and gen weakness Renal consult requested for ESRD management. ROS: pt unable to provide much reliable hx Cardiovascular: No chest pain. Pulmonary: No shortness of breath Gastrointestinal: denies abdominal pain No nausea. No vomiting. Genitourinary: No pain while urinating. Denies blood in urine. All other negative except as mentioned in HPI Physical Examination: General Appearance: Comfortable, in no acute respiratory distress, co-operative . Vitals reviewed and noted as below Head; Atraumatic, normocephalic ENT: no ulcers no thrush. Tongue is midline. Oropharynx: no rash or ulcers. EYES: Pupils are equal, round and reactive to light accommodation. Eye muscles and extraocular movement intact. Sclera is anicteric. Neck; supple no lymphadenopathy, no thyromegaly or bruit Lungs: Normal respiratory rate/effort. Breath sounds bilateral equal and clear Heart: Normal rate. s1s2 normal. No rub or gallop. Extremities: no edema. No varicose veins Neurological: Patient is alert, awake and forgetful. No focal deficit. Strength bilateral appropriate and equal Skin: Warm and dry. Normal turgor. No rash. Palpitation: Normal elasticity for age Abdomen: Abdomen is soft. Bowel sounds +. There is no abdominal tenderness, no guarding/rigidity or organomegaly Psych: lac insight and normal affect/mood MSK: no joint tenderness or swelling. Digits and nails normal, no deformity : kidney or bladder not palpable Access: AVF Labs/imaging reviewed. Past medical history, past surgical history, family history, social history, allergy reviewed and noted as below Family Hx: no hx of CKD. Non contributory Past Patient History - Infectious Disease Hx of Infectious Diseases: None - Past Medical History & Family History Past Medical History?: Yes - Past Social History Smoking Status: Former Smoker - CARDIAC Hx Cardiac Disorders: Yes (bradycardia, 3rd degree AV block, s/p pacemaker placement.) Hx Congestive Heart Failure: Yes Hx Hypertension: Yes - PULMONARY Hx Respiratory Disorders: Yes Hx Asthma: No Hx Chronic Obstructive Pulmonary Disease (COPD): No Hx Emphysema: No Hx Lung Cancer: No Hx Pneumonia: Yes Hx Pulmonary Edema: No Hx Pulmonary Embolism: No Hx Respiratory Aspiration: No Hx Respiratory Tract Infection: No Hx Sleep Apnea: No Hx Tuberculosis: No - NEUROLOGICAL Hx Neurological Disorder: No Hx Alzheimer's Disease: No HX Cerebrovascular Accident: No Hx Dementia: No Hx Dizziness: No Hx Meningitis: No Hx Migraine: No Hx Multiple Sclerosis: No Hx Paralysis: No - HEENT Hx HEENT Problems: No Hx Blind: No Hx Cataracts: No Hx Deafness: No Hx Difficulty Chewing: No Hx Epistaxis: No Hx Glaucoma: No Hx Macular Degeneration: No - RENAL Hx Renal Failure: Yes (on HD M,W,F.) - ENDOCRINE/METABOLIC Hx Endocrine Disorders: No - HEMATOLOGICAL/ONCOLOGICAL Hx Blood Disorders: No Hx Blood Transfusions: No Hx Blood Transfusion Reaction: No - INTEGUMENTARY Hx Dermatological Problems: No - MUSCULOSKELETAL/RHEUMATOLOGICAL Hx Arthritis: Yes - GASTROINTESTINAL Hx Gastrointestinal Disorders: No - GENITOURINARY/GYNECOLOGICAL Hx Genitourinary Disorders: Yes Hx Bladder Cancer: No Hx Bladder Stone: No Hx Hematuria: No Hx Incontinence: No Hx Prostate Cancer: Yes Hx Prostate Problems: No Hx Reproductive Disorders: No (bph,) Hx Sexually Transmitted Disorders: No Hx Urinary Tract Infection: No - PSYCHIATRIC Hx Substance Use: No - SURGICAL HISTORY Other/Comment: Patient states he had "Sub-mucous nasal resection" - ANESTHESIA Hx Anesthesia: Yes Hx Anesthesia Reactions: No Hx Malignant Hyperthermia: No Meds Allergies/Adverse Reactions: Allergies Allergy/AdvReac Type Severity Reaction Status Date / Time No Known Allergies Allergy Verified 09/28/11 11:08 - Medications Medications: Current Medications Acetaminophen (Tylenol 325mg Tab) 650 mg PO Q6H PRN PRN Reason: Pain, Mild (1-3) Aspirin (Ecotrin) 81 mg PO DAILY [facility] Last Admin: 07/24/18 09:17 Dose: 81 mg Atorvastatin Calcium (Lipitor) 10 mg PO DIN [facility] Donepezil HCl (Aricept) 10 mg PO DAILY [facility] Heparin Sodium (Porcine) (Heparin) 5,000 units SC Q8 [facility]; Protocol Last Admin: 07/24/18 05:29 Dose: 5,000 units Montelukast Sodium (Singulair) 10 mg PO DAILY [facility] Last Admin: 07/24/18 09:17 Dose: 10 mg Ondansetron HCl (Zofran Inj) 4 mg IVP Q6H PRN PRN Reason: Nausea/Vomiting Pantoprazole Sodium (Protonix Ec Tab) 40 mg PO 0600 [facility] Last Admin: 07/24/18 05:29 Dose: 40 mg Sevelamer HCl (Renagel) 800 mg PO DAILY [facility] Last Admin: 07/24/18 09:17 Dose: 800 mg Vitamin B Complex/Vit C/Folic Acid (Nephro-Sai) 1 tab PO DAILY [facility] Last Admin: 07/24/18 09:17 Dose: 1 tab Results - Vital Signs Recent Vital Signs: Last Vital Signs Temp 98.2 F 07/24/18 06:00 Pulse 62 07/24/18 14:00 Resp 16 07/24/18 10:23 BP 148/74 07/24/18 10:23 Pulse Ox 96 07/24/18 10:23 - Labs Result Diagrams: 07/24/18 07:00 07/24/18 07:00 Labs: Laboratory Results - last 24 hr 07/23/18 07/23/18 07/23/18 18:15 18:15 18:15 WBC 6.1 RBC 4.33 Hgb 11.4 L Hct 36.4 L MCV 84.1 MCH 26.3 MCHC 31.3 RDW 16.4 H Plt Count 218 MPV 10.6 Neut % (Auto) 74.7 H Lymph % (Auto) 15.8 L [place] % (Auto) 9.0 H Eos % (Auto) 0.3 L Baso % (Auto) 0.2 Lymph # (Auto) 1.0 L [place] # (Auto) 0.6 Eos # (Auto) 0.0 Baso # (Auto) 0.01 Absolute Neuts (auto) 4.58 PT 12.3 INR 1.11 APTT 29.4 pCO2 pO2 HCO3 ABG pH ABG Total CO2 ABG O2 Saturation ABG O2 Content ABG Base Excess ABG Hemoglobin ABG Carboxyhemoglobin POC ABG HHb (Measured) ABG Methemoglobin ABG O2 Capacity Hgb O2 Saturation FiO2 Sodium 143 Potassium 3.7 Chloride 103 Carbon Dioxide 28 Anion Gap 16 BUN 40 H Creatinine 11.1 H* Est GFR ( Amer) 6 Est GFR (Non-Af Amer) 5 Random Glucose 112 H Hemoglobin A1c Calcium 9.3 Phosphorus Magnesium Total Bilirubin 0.5 AST 20 ALT 10 Alkaline Phosphatase 79 Lactate Dehydrogenase 428 Total Creatine Kinase 52 Troponin I 0.09 Total Protein 7.3 Albumin 3.9 Globulin 3.4 Albumin/Globulin Ratio 1.1 Triglycerides Cholesterol LDL Cholesterol Direct HDL Cholesterol Vitamin B12 Folate TSH 3rd Generation 07/23/18 07/24/18 07/24/18 23:30 04:59 07:00 WBC 5.7 RBC 4.05 Hgb 10.5 L Hct 33.9 L MCV 83.7 MCH 25.9 MCHC 31.0 RDW 16.7 H Plt Count 222 MPV 11.3 H Neut % (Auto) 67.9 Lymph % (Auto) 22.3 [place] % (Auto) 7.9 H Eos % (Auto) 1.4 L Baso % (Auto) 0.5 Lymph # (Auto) 1.3 [place] # (Auto) 0.5 Eos # (Auto) 0.1 Baso # (Auto) 0.03 Absolute Neuts (auto) 3.87 PT INR APTT pCO2 40 pO2 85.0 HCO3 29.1 H ABG pH 7.47 H ABG Total CO2 30.3 H ABG O2 Saturation 97.5 ABG O2 Content 14.4 L ABG Base Excess 5.0 H ABG Hemoglobin 10.7 L ABG Carboxyhemoglobin 1.5 POC ABG HHb (Measured) 2.4 ABG Methemoglobin 1.0 ABG O2 Capacity 14.8 L Hgb O2 Saturation 95.1 FiO2 21.0 Sodium Potassium Chloride Carbon Dioxide Anion Gap BUN Creatinine Est GFR ( Amer) Est GFR (Non-Af Amer) Random Glucose Hemoglobin A1c Calcium Phosphorus Magnesium Total Bilirubin AST ALT Alkaline Phosphatase Lactate Dehydrogenase Total Creatine Kinase Troponin I 0.10 Total Protein Albumin Globulin Albumin/Globulin Ratio Triglycerides Cholesterol LDL Cholesterol Direct HDL Cholesterol Vitamin B12 Folate TSH 3rd Generation 07/24/18 07/24/18 07/24/18 07:00 07:00 07:00 WBC RBC Hgb Hct MCV MCH MCHC RDW Plt Count MPV Neut % (Auto) Lymph % (Auto) [place] % (Auto) Eos % (Auto) Baso % (Auto) Lymph # (Auto) [place] # (Auto) Eos # (Auto) Baso # (Auto) Absolute Neuts (auto) PT INR APTT pCO2 pO2 HCO3 ABG pH ABG Total CO2 ABG O2 Saturation ABG O2 Content ABG Base Excess ABG Hemoglobin ABG Carboxyhemoglobin POC ABG HHb (Measured) ABG Methemoglobin ABG O2 Capacity Hgb O2 Saturation FiO2 Sodium 145 Potassium 3.9 Chloride 104 Carbon Dioxide 28 Anion Gap 17 BUN 46 H Creatinine 12.3 H* Est GFR ( Amer) 5 Est GFR (Non-Af Amer) 4 Random Glucose 97 Hemoglobin A1c 5.1 Calcium 9.4 Phosphorus 4.0 Magnesium 2.3 H Total Bilirubin 0.4 AST 12 L D ALT < 6 L Alkaline Phosphatase 72 Lactate Dehydrogenase Total Creatine Kinase Troponin I 0.11 Total Protein 7.0 Albumin 3.7 Globulin 3.3 Albumin/Globulin Ratio 1.1 Triglycerides 94 Cholesterol 164 LDL Cholesterol Direct 51 HDL Cholesterol 55 Vitamin B12 859 Folate 17.4 TSH 3rd Generation 0.20 L
--- NOTE | 2018-07-24 17:01 | CP.PCM.PN ---
Subjective - Date & Time of Evaluation Date of Evaluation: 07/24/18 Time of Evaluation: 17:00 - Subjective Subjective: dialysis note pt seen during dialysis tolerating treatment well d/w dialysis nurse c/w HD MWF schedule BP med adjusted Objective - Vital Signs/Intake and Output Vital Signs (last 24 hours): Temp Pulse Resp BP Pulse Ox 98.2 F 62 16 148/74 96 07/24/18 06:00 07/24/18 14:00 07/24/18 10:23 07/24/18 10:23 07/24/18 10:23 Intake and Output: 07/24/18 07/24/18 06:59 18:59 Intake Total 240 Output Total 0 Balance 240 - Medications Medications: Current Medications Acetaminophen (Tylenol 325mg Tab) 650 mg PO Q6H PRN PRN Reason: Pain, Mild (1-3) Aspirin (Ecotrin) 81 mg PO DAILY [facility] Last Admin: 07/24/18 09:17 Dose: 81 mg Atorvastatin Calcium (Lipitor) 10 mg PO DIN [facility] Donepezil HCl (Aricept) 10 mg PO DAILY [facility] Heparin Sodium (Porcine) (Heparin) 5,000 units SC Q8 [facility]; Protocol Last Admin: 07/24/18 05:29 Dose: 5,000 units Losartan Potassium (Cozaar) 50 mg PO QPM [facility] Montelukast Sodium (Singulair) 10 mg PO DAILY [facility] Last Admin: 07/24/18 09:17 Dose: 10 mg Ondansetron HCl (Zofran Inj) 4 mg IVP Q6H PRN PRN Reason: Nausea/Vomiting Pantoprazole Sodium (Protonix Ec Tab) 40 mg PO 0600 [facility] Last Admin: 07/24/18 05:29 Dose: 40 mg Sevelamer HCl (Renagel) 800 mg PO DAILY [facility] Last Admin: 07/24/18 09:17 Dose: 800 mg Vitamin B Complex/Vit C/Folic Acid (Nephro-Sai) 1 tab PO DAILY [facility] Last Admin: 07/24/18 09:17 Dose: 1 tab - Labs Labs: 07/24/18 07:00 07/24/18 07:00 PT 12.3 SECONDS (9.4-12.5) 07/23/18 18:15 INR 1.11 07/23/18 18:15 APTT 29.4 Seconds (26.9-38.3) 07/23/18 18:15
--- NOTE | 2018-07-24 17:24 | CP.PCM.PN ---
<Leo Galvez R - Last Filed: 07/24/18 17:21> Subjective - Date & Time of Evaluation Date of Evaluation: 07/24/18 Time of Evaluation: 10:00 - Subjective Subjective: PGY-2 medicine progress note for Dr Gill No acute events noted overnight. Patient lying comfortably in bed. Patient AAOx2 (not oriented to year), with expressive aphasia. Denied being in any pain or discomfort. Unable to verbalize his health the last week. Denied chest pain, fever, shortness of breath, d/c. Objective - Vital Signs/Intake and Output Vital Signs (last 24 hours): Temp Pulse Resp BP Pulse Ox 98.2 F 62 16 148/74 96 07/24/18 06:00 07/24/18 14:00 07/24/18 10:23 07/24/18 10:23 07/24/18 10:23 Intake and Output: 07/24/18 07/24/18 06:59 18:59 Intake Total 240 Output Total 0 Balance 240 - Medications Medications: Current Medications Acetaminophen (Tylenol 325mg Tab) 650 mg PO Q6H PRN PRN Reason: Pain, Mild (1-3) Aspirin (Ecotrin) 81 mg PO DAILY [facility] Last Admin: 07/24/18 09:17 Dose: 81 mg Atorvastatin Calcium (Lipitor) 10 mg PO DIN [facility] Donepezil HCl (Aricept) 10 mg PO DAILY [facility] Heparin Sodium (Porcine) (Heparin) 5,000 units SC Q8 [facility]; Protocol Last Admin: 07/24/18 05:29 Dose: 5,000 units Losartan Potassium (Cozaar) 50 mg PO QPM [facility] Montelukast Sodium (Singulair) 10 mg PO DAILY [facility] Last Admin: 07/24/18 09:17 Dose: 10 mg Ondansetron HCl (Zofran Inj) 4 mg IVP Q6H PRN PRN Reason: Nausea/Vomiting Pantoprazole Sodium (Protonix Ec Tab) 40 mg PO 0600 [facility] Last Admin: 07/24/18 05:29 Dose: 40 mg Sevelamer HCl (Renagel) 800 mg PO DAILY [facility] Last Admin: 07/24/18 09:17 Dose: 800 mg Vitamin B Complex/Vit C/Folic Acid (Nephro-Sai) 1 tab PO DAILY [facility] Last Admin: 07/24/18 09:17 Dose: 1 tab - Labs Labs: 07/24/18 07:00 07/24/18 07:00 PT 12.3 SECONDS (9.4-12.5) 07/23/18 18:15 INR 1.11 07/23/18 18:15 APTT 29.4 Seconds (26.9-38.3) 07/23/18 18:15 - Additional Findings Additional findings: - Constitutional Appears: No Acute Distress Additional comments: Alert to self and able to answer the month but unable to answer year and not oriented to situation - Head Exam Head Exam: ATRAUMATIC, NORMOCEPHALIC - Eye Exam Eye Exam: EOMI, PERRL - ENT Exam ENT Exam: Mucous Membranes Moist - Neck Exam Neck exam: Positive for: Full Rom, Normal Inspection - Respiratory Exam Respiratory Exam: Clear to Auscultation Bilateral, NORMAL BREATHING PATTERN. absent: Accessory Muscle Use, Decreased Breath Sounds, Rhonchi, Wheezes, Res piratory Distress - Cardiovascular Exam Cardiovascular Exam: REGULAR RHYTHM, RRR, +S1, +S2. absent: Diastolic murmur, Gallop, Rubs, Systolic Murmur Additional comments: PPM visualized left upper sternum - GI/Abdominal Exam GI & Abdominal Exam: Normal Bowel Sounds, Soft. absent: Guarding, Rebound, Tenderness - Extremities Exam Extremities exam: Positive for: full ROM, pedal pulses present. 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 Plan: Altered Mental Status May be 2/2 worsening of chronic dementia Lower suspicion for occult CVA, uremia, infectious etiology, or nutrient deficiency CT head completed in ED negative for any acute intracranial abnormality Neurology notified, states a CVA would have shown up on CT head by this time but would like MRI if possible Need to f/u with patient's family regarding PPM rn cvicu and contact whether MRI is safe prior to ordering MRI F/u screening video EEG Orthostatis test negative Will straight cath x 1 with UA and Urine cx F/u cisneros cx, procal F/u B12, folate levels PT evaluate and treat for weakness/gait instability Neurology consult placed, Dr Reed, all recs appreciated Cognitive Decline, Chronic Home aricept increased to 10mg po qd by neurology Hypothyroidism TSH low at 0.20 F/u Free T4 Severe Pulmonary HTN Identified on TTE completed for admission in 02/2014 Patient was admitted at that time with SOB Unclear etiology, may be 2/2 diastolic CHF Patient currently denies CP, SOB Will repeat TTE CKD HD Dependent Patient normally gets MWF dialysis BUN/Cr elevated this admission but unclear baseline Lower suspicion for uremic encephalitis with BUN of 40 Will need arrangements for HD tomorrow Nephrology consult placed, all recs appreciated HTN Added losartan 50mg po qd Equivocal Troponin Likely 2/2 to ESRD DVT/GI PPX: SC heparin/protonix Full Code NPO pending swallow evaluation Monitor on telemetry Patient seen, examined with, and plan discussed with my attending Dr. Gill <Maggie Gill - Last Filed: 07/26/18 15:15> Objective - Vital Signs/Intake and Output Vital Signs (last 24 hours): Temp Pulse Resp BP Pulse Ox 97.7 F 69 20 118/78 96 07/26/18 08:12 07/26/18 08:12 07/26/18 08:12 07/26/18 08:12 07/26/18 08:12 Intake and Output: 07/26/18 07/26/18 06:59 18:59 Intake Total 240 Balance 240 - Medications Medications: Current Medications Acetaminophen (Tylenol 325mg Tab) 650 mg PO Q6H PRN PRN Reason: Pain, Mild (1-3) Aspirin (Ecotrin) 81 mg PO DAILY [facility] Last Admin: 07/26/18 12:39 Dose: 81 mg Atorvastatin Calcium (Lipitor) 10 mg PO DIN [facility] Last Admin: 07/25/18 18:25 Dose: 10 mg Donepezil HCl (Aricept) 10 mg PO DAILY [facility] Last Admin: 07/26/18 12:39 Dose: 10 mg Heparin Sodium (Porcine) (Heparin) 5,000 units SC Q8 [facility]; Protocol Last Admin: 07/26/18 06:05 Dose: 5,000 units Losartan Potassium (Cozaar) 50 mg PO QPM [facility] Last Admin: 07/25/18 18:25 Dose: 50 mg Montelukast Sodium (Singulair) 10 mg PO DAILY [facility] Last Admin: 07/26/18 12:40 Dose: 10 mg Ondansetron HCl (Zofran Inj) 4 mg IVP Q6H PRN PRN Reason: Nausea/Vomiting Pantoprazole Sodium (Protonix Ec Tab) 40 mg PO 0600 [facility] Last Admin: 07/26/18 06:05 Dose: 40 mg Sevelamer HCl (Renagel) 800 mg PO DAILY [facility] Last Admin: 07/26/18 12:39 Dose: 800 mg Vitamin B Complex/Vit C/Folic Acid (Nephro-Sai) 1 tab PO DAILY [facility] Last Admin: 07/26/18 12:39 Dose: 1 tab - Labs Labs: 07/26/18 06:10 07/26/18 06:10 PT 12.3 SECONDS (9.4-12.5) 07/23/18 18:15 INR 1.11 07/23/18 18:15 APTT 29.4 Seconds (26.9-38.3) 07/23/18 18:15 Attending/Attestation - Attestation I have personally seen and examined this patient.: Yes I have fully participated in the care of the patient.: Yes I have reviewed all pertinent clinical information, including history, physical exam and plan: Yes Notes (Text): 07/26/18 15:13 Patient was seen and examined with medical device engineer. 72M, PMH of ESRD on MWF HD, SP Pacemaker for on 3rd degree AV block, HTN and dementia was admitted for confusion and weakness. CT head is negative, there is no focal deficit. There is no evidence of infection, Etiology is likely due due to dementia,Neurology evealuation is pending. TSH is low but T 3 , and T 4 is not high, patient has subclinical hyperthyroidism, need repeat Thyroid function in 6-8 weeks We will get Physical therapy evaluation.
[2018-07-25] MEDS: Pantoprazole 40 mg EC Tab PO SCH (06:37)
[2018-07-25 07:11] LABS: BASO # 0.04 K/mm3 (0.0-2.0); BASO % 0.6 % (0.0-3.0); EOS # 0.1 (0.0-0.7); EOS % 1.8 % (1.5-5.0); HEMOGLOBIN 12.2 g/dL (14.0-18.0); LYMPH # 1.6 (1.2-3.4); LYMPH % 22.3 % (22.0-35.0); MEAN CELL VOLUME 83.9 fl (80.0-105.0); MEAN CORPUSCULAR HEMOGLOBIN 26.2 pg (25.0-35.0); MEAN CORPUSCULAR HGB CONC 31.3 g/dl (31.0-37.0); MEAN PLATELET VOLUME 10.9 fl (7.0-11.0); MONO # 0.7 (0.1-0.6); MONO % 10.4 % (1.0-6.0); RBC 4.65 10^6/uL (3.5-6.1); RED CELL DISTRIBUTION WIDTH 16.9 % (11.5-14.5); WHITE BLOOD COUNT 7.1 10^3/uL (4.5-11.0)
[2018-07-25 07:27] LABS: ALB/GLOB RATIO 1.1 (1.1-1.8); ALBUMIN 3.8 g/dL (3.0-4.8); CALCIUM 9.6 mg/dL (8.4-10.5)
[2018-07-25 07:31] LABS: FREE T4 1.65 ng/dL (0.78-2.19)
[2018-07-25] MEDS: Multivitamin Vitamin B Complex (Nephro-Vite) Tab PO SCH (11:33)
--- NOTE | 2018-07-25 12:48 | CP.PCM.PN ---
Subjective - Date & Time of Evaluation Date of Evaluation: 07/25/18 Time of Evaluation: 12:47 - Subjective Subjective: Nephrology Consultation Note: Assessment: Stable dementia pulmonary vasc congestion uncontrolled HTN with urgency Hypertensive Chronic Kidney Disease (I12.0) End stage renal disease (N18.6) dependence on hemodialysis (Z99.2) (MWF) via AVF Anemia (D64.9), Hyperphosphatemia (E83.39), Secondary Hyperparathyroidism (E21.1), HTN (I12.0) Plan: Will plan for HD MWF as ordered. Continue with Nephrovite 1 tab/day. PRBC as needed for anemia. not on UZMA with dialysis as last Hb 10.5 Continue with phos binders, last phos level 4 BP control with meds as ordered. Patient not on RAAS gomez hence will add losartan Glycemic control, Dialysis consistent diet Further work up/management as per primary team Dose meds/antibiotics (if needed) for ESRD status. Avoid fleets enema/magnesium based laxatives. Neurology following Thanks for allowing me to participate in care of your patient. Will follow patient with you. Please call if any Qs Dr Bertrand Winkler Office: [phone] Chief Complaint; weakness HPI: Pt is a 72 M with hx of ESRD on hemodialysis (MWF) via AVF, last dialysis tuesday, chronic anemia, hyperphosphatemia, secondary hyperparathyroidism, hypertension dementia, AV block s/p PPM presented with complaints of worsening confusion and gen weakness Renal consult requested for ESRD management. ROS: pt unable to provide much reliable hx Cardiovascular: No chest pain. Pulmonary: No shortness of breath Gastrointestinal: denies abdominal pain No nausea. No vomiting. Genitourinary: No pain while urinating. Denies blood in urine. All other negative except as mentioned in HPI Physical Examination: General Appearance: Comfortable, in no acute respiratory distress, co-operative . Vitals reviewed and noted as below Head; Atraumatic, normocephalic ENT: no ulcers no thrush. Tongue is midline. Oropharynx: no rash or ulcers. EYES: Pupils are equal, round and reactive to light accommodation. Eye muscles and extraocular movement intact. Sclera is anicteric. Neck; supple no lymphadenopathy, no thyromegaly or bruit Lungs: Normal respiratory rate/effort. Breath sounds bilateral equal and clear Heart: Normal rate. s1s2 normal. No rub or gallop. Extremities: no edema. No varicose veins Neurological: Patient is alert, awake and forgetful. No focal deficit. Strength bilateral appropriate and equal Skin: Warm and dry. Normal turgor. No rash. Palpitation: Normal elasticity for age Abdomen: Abdomen is soft. Bowel sounds +. There is no abdominal tenderness, no guarding/rigidity or organomegaly Psych: lac insight and normal affect/mood MSK: no joint tenderness or swelling. Digits and nails normal, no deformity : kidney or bladder not palpable Access: AVF Labs/imaging reviewed. Past medical history, past surgical history, family history, social history, allergy reviewed and noted as below Family Hx: no hx of CKD. Non contributory Objective - Vital Signs/Intake and Output Vital Signs (last 24 hours): Temp Pulse Resp BP Pulse Ox 98.0 F 71 18 122/66 98 07/25/18 12:00 07/25/18 12:00 07/25/18 12:00 07/25/18 12:00 07/25/18 05:44 Intake and Output: 07/25/18 07/25/18 06:59 18:59 Intake Total 120 Balance 120 - Medications Medications: Current Medications Acetaminophen (Tylenol 325mg Tab) 650 mg PO Q6H PRN PRN Reason: Pain, Mild (1-3) Aspirin (Ecotrin) 81 mg PO DAILY [facility] Last Admin: 07/25/18 11:33 Dose: 81 mg Atorvastatin Calcium (Lipitor) 10 mg PO DIN [facility] Last Admin: 07/24/18 17:34 Dose: 10 mg Donepezil HCl (Aricept) 10 mg PO DAILY [facility] Last Admin: 07/25/18 11:33 Dose: 10 mg Heparin Sodium (Porcine) (Heparin) 5,000 units SC Q8 [facility]; Protocol Last Admin: 07/25/18 06:36 Dose: 5,000 units Losartan Potassium (Cozaar) 50 mg PO QPM [facility] Last Admin: 07/24/18 17:34 Dose: 50 mg Montelukast Sodium (Singulair) 10 mg PO DAILY [facility] Last Admin: 07/25/18 11:33 Dose: 10 mg Ondansetron HCl (Zofran Inj) 4 mg IVP Q6H PRN PRN Reason: Nausea/Vomiting Pantoprazole Sodium (Protonix Ec Tab) 40 mg PO 0600 [facility] Last Admin: 07/25/18 06:37 Dose: 40 mg Sevelamer HCl (Renagel) 800 mg PO DAILY [facility] Last Admin: 07/25/18 11:33 Dose: 800 mg Vitamin B Complex/Vit C/Folic Acid (Nephro-Sai) 1 tab PO DAILY [facility] Last Admin: 07/25/18 11:33 Dose: 1 tab - Labs Labs: 07/25/18 06:00 07/25/18 06:00 PT 12.3 SECONDS (9.4-12.5) 07/23/18 18:15 INR 1.11 07/23/18 18:15 APTT 29.4 Seconds (26.9-38.3) 07/23/18 18:15
--- NOTE | 2018-07-25 15:12 | CP.PCM.PN ---
<JuventinoradhaDesireeh - Last Filed: 07/25/18 15:54> Subjective - Date & Time of Evaluation Date of Evaluation: 07/25/18 Time of Evaluation: 14:56 - Subjective Subjective: Medicine Note for Dr. Gill 72M seen and evaluated at bedside this morning. No acute events overnight. Patient states he feels better. He is alert and oriented. Patient walking and worked with physical therapy. He is tolerating diet. He is voiding and having bowel movements. Denies f/c, n/v/d, SOB, CP, or urinary symptoms. Objective - Vital Signs/Intake and Output Vital Signs (last 24 hours): Temp Pulse Resp BP Pulse Ox 98.0 F 71 18 122/66 98 07/25/18 12:00 07/25/18 12:00 07/25/18 12:00 07/25/18 12:00 07/25/18 05:44 Intake and Output: 07/25/18 07/25/18 06:59 18:59 Intake Total 120 Balance 120 - Medications Medications: Current Medications Acetaminophen (Tylenol 325mg Tab) 650 mg PO Q6H PRN PRN Reason: Pain, Mild (1-3) Aspirin (Ecotrin) 81 mg PO DAILY [facility] Last Admin: 07/25/18 11:33 Dose: 81 mg Atorvastatin Calcium (Lipitor) 10 mg PO DIN [facility] Last Admin: 07/24/18 17:34 Dose: 10 mg Donepezil HCl (Aricept) 10 mg PO DAILY [facility] Last Admin: 07/25/18 11:33 Dose: 10 mg Heparin Sodium (Porcine) (Heparin) 5,000 units SC Q8 [facility]; Protocol Last Admin: 07/25/18 06:36 Dose: 5,000 units Losartan Potassium (Cozaar) 50 mg PO QPM [facility] Last Admin: 07/24/18 17:34 Dose: 50 mg Montelukast Sodium (Singulair) 10 mg PO DAILY [facility] Last Admin: 07/25/18 11:33 Dose: 10 mg Ondansetron HCl (Zofran Inj) 4 mg IVP Q6H PRN PRN Reason: Nausea/Vomiting Pantoprazole Sodium (Protonix Ec Tab) 40 mg PO 0600 [facility] Last Admin: 07/25/18 06:37 Dose: 40 mg Sevelamer HCl (Renagel) 800 mg PO DAILY [facility] Last Admin: 07/25/18 11:33 Dose: 800 mg Vitamin B Complex/Vit C/Folic Acid (Nephro-Sai) 1 tab PO DAILY [facility] Last Admin: 07/25/18 11:33 Dose: 1 tab - Labs Labs: 07/25/18 06:00 07/25/18 06:00 PT 12.3 SECONDS (9.4-12.5) 07/23/18 18:15 INR 1.11 07/23/18 18:15 APTT 29.4 Seconds (26.9-38.3) 07/23/18 18:15 - Constitutional Appears: Well, Non-toxic, No Acute Distress - Head Exam Head Exam: ATRAUMATIC, NORMAL INSPECTION, NORMOCEPHALIC - Eye Exam Eye Exam: EOMI Pupil Exam: PERRL - ENT Exam ENT Exam: Mucous Membranes Moist - Respiratory Exam Respiratory Exam: Clear to Ausculation Bilateral, NORMAL BREATHING PATTERN. absent: Accessory Muscle Use, Chest Wall Tenderness, Decreased Breath Sounds, Rales, Rhonchi, Wheezes, Respiratory Distress - Cardiovascular Exam Cardiovascular Exam: REGULAR RHYTHM, +S1, +S2. absent: Tachycardia, Murmur - GI/Abdominal Exam GI & Abdominal Exam: Soft, Normal Bowel Sounds. 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 Plan: Altered Mental Status - Possibly 2/2 worsening of chronic dementia vs less likely, occult CVA, uremia, infectious etiology, or nutrient deficiency - CT head negative for any acute intracranial abnormality - EEG normal - Orthostatics test negative - Procal 0.68, elevated - B12, folate levels wnl - PT recommends continued therapy and [facility] - Neurology, Dr. Reed, following Cognitive Decline, Chronic - Home aricept increased to 10mg po qd by neurology Subclinical Hyperthyroidism - TSH low at 0.12 - Free T4 1.65, Total T3 0.93 - No treatment indicated at this time Severe Pulmonary HTN - Identified on TTE completed for admission in 02/2014 - F/u ECHO read CKD on HD - Patient normally gets MWF dialysis, will arrange for inpatient HD - Nephrology following Hypertension - Added losartan 50mg PO QD PPX DVT: SC heparin GI: protonix Dispo: Discharge planning to [facility] Patient plan reviewed and discussed with Dr. Bridget Frausto PGY1 <Maggie Gill - Last Filed: 07/26/18 14:35> Objective - Vital Signs/Intake and Output Vital Signs (last 24 hours): Temp Pulse Resp BP Pulse Ox 97.7 F 69 20 118/78 96 07/26/18 08:12 07/26/18 08:12 07/26/18 08:12 07/26/18 08:12 07/26/18 08:12 Intake and Output: 07/26/18 07/26/18 06:59 18:59 Intake Total 240 Balance 240 - Medications Medications: Current Medications Acetaminophen (Tylenol 325mg Tab) 650 mg PO Q6H PRN PRN Reason: Pain, Mild (1-3) Aspirin (Ecotrin) 81 mg PO DAILY [facility] Last Admin: 07/26/18 12:39 Dose: 81 mg Atorvastatin Calcium (Lipitor) 10 mg PO DIN [facility] Last Admin: 07/25/18 18:25 Dose: 10 mg Donepezil HCl (Aricept) 10 mg PO DAILY [facility] Last Admin: 07/26/18 12:39 Dose: 10 mg Heparin Sodium (Porcine) (Heparin) 5,000 units SC Q8 [facility]; Protocol Last Admin: 07/26/18 06:05 Dose: 5,000 units Losartan Potassium (Cozaar) 50 mg PO QPM [facility] Last Admin: 07/25/18 18:25 Dose: 50 mg Montelukast Sodium (Singulair) 10 mg PO DAILY [facility] Last Admin: 07/26/18 12:40 Dose: 10 mg Ondansetron HCl (Zofran Inj) 4 mg IVP Q6H PRN PRN Reason: Nausea/Vomiting Pantoprazole Sodium (Protonix Ec Tab) 40 mg PO 0600 [facility] Last Admin: 07/26/18 06:05 Dose: 40 mg Sevelamer HCl (Renagel) 800 mg PO DAILY [facility] Last Admin: 07/26/18 12:39 Dose: 800 mg Vitamin B Complex/Vit C/Folic Acid (Nephro-Sai) 1 tab PO DAILY [facility] Last Admin: 07/26/18 12:39 Dose: 1 tab - Labs Labs: 07/26/18 06:10 07/26/18 06:10 PT 12.3 SECONDS (9.4-12.5) 07/23/18 18:15 INR 1.11 07/23/18 18:15 APTT 29.4 Seconds (26.9-38.3) 07/23/18 18:15 Attending/Attestation - Attestation I have personally seen and examined this patient.: Yes I have fully participated in the care of the patient.: Yes I have reviewed all pertinent clinical information, including history, physical exam and plan: Yes Notes (Text): 07/26/18 14:32 Patient was seen and examined with medical research scientist. 72M, PMH of ESRD on MWF HD, SP Pacemaker for on 3rd degree AV block, HTN and dementia was admitted for forgetfulness and weakness. CT head is negative, there is no focal deficit. There is no evidence of infection, Etiology is due to dementia, Aricept dose is increase. PT has recommended [facility],awaiting placement
--- NOTE | 2018-07-25 16:56 | CARD ---
APPROVED REPORT Date of service: 07/25/2018 EXAM: Two-dimensional and M-mode echocardiogram with Doppler and color Doppler. INDICATION POSS HX CHF...HX PULMONARY HTN 2D DIMENSIONS Left Atrium (2D)4.9 (1.6-4.0cm)IVSd1.4 (0.7-1.1cm) LVDd5.5 (3.9-5.9cm)PWd1.2 (0.7-1.1cm) LVDs4.7 (2.5-4.0cm)FS (%) 14.0 % LVEF (%)29.3 (>50%) M-Mode DIMENSIONS Aortic Root3.90 (2.2-3.7cm)Aortic Cusp Exc.1.40 (1.5-2.0cm) Aortic Valve AoV Peak Hysuzrxl134.0cm/sAoV VTI31.9cmAO Peak GR.18mmHg LVOT Peak Dfjktpyl992.0cm/sLVOT VTI19.90cmAO Mean GR.7mmHg AI P 1/2 [id number] Mitral Valve MV E Izgcebwp57.6cm/sMV A Cofefcsg40.3cm/sE/A ratio0.7 TDI Lateral E' Peak V6.24cm/sMedial E' Peak V4.87cm/sE/Lateral E'10.7 E/Medial E'13.7 Pulmonary Valve PV Peak Cfzykvod62.1cm/sPV Peak Grad.2mmHg Tricuspid Valve TR Peak Ilvusavi548pf/sRAP [id number] Peak Gr.9mmHg [id number] LEFT VENTRICLE The left ventricle is normal size. There is mild concentric left ventricular hypertrophy. The systolic function is severely impaired. Apical motion consistent with pacemaker activation. Transmitral Doppler flow pattern is Grade I-abnormal relaxation pattern. No left ventricle thrombus noted on this study. RIGHT VENTRICLE The right ventricle is normal size. There is normal right ventricular wall thickness. The right ventricular systolic function is normal. ATRIA The left atrium is mildly dilated. The right atrium size is normal. AORTIC VALVE The aortic valve is moderately thickened. There is mild to moderate aortic regurgitation. There is trace valvular aortic stenosis. MITRAL VALVE The mitral valve is mildly thickened. Mitral regurgitation is mild to moderate. TRICUSPID VALVE There is trace tricuspid regurgitation. PULMONIC VALVE There is trace pulmonic valvular regurgitation. GREAT VESSELS The aortic root is mildly enlarged. <Conclusion> The left ventricle is normal size. There is mild concentric left ventricular hypertrophy. The systolic function is severely impaired. Apical motion consistent with pacemaker activation. Transmitral Doppler flow pattern is Grade I-abnormal relaxation pattern. No left ventricle thrombus noted on this study. The aortic valve is moderately thickened.There is mild to moderate aortic regurgitation.The aortic root is mildly enlarged. Mitral regurgitation is mild to moderate.
[2018-07-26] MEDS ORDERED: Sodium Chloride 0.9% 250 ML IV STA (05:57)
[2018-07-26] MEDS: Pantoprazole 40 mg EC Tab PO SCH (06:05)
[2018-07-26 07:09] LABS: BASO # 0.03 K/mm3 (0.0-2.0); BASO % 0.5 % (0.0-3.0); EOS # 0.1 (0.0-0.7); EOS % 2.1 % (1.5-5.0); HEMOGLOBIN 11.4 g/dL (14.0-18.0); LYMPH % 31.5 % (22.0-35.0); MEAN CELL VOLUME 83.2 fl (80.0-105.0); MEAN CORPUSCULAR HEMOGLOBIN 26.2 pg (25.0-35.0); MEAN CORPUSCULAR HGB CONC 31.5 g/dl (31.0-37.0); MEAN PLATELET VOLUME 10.9 fl (7.0-11.0); MONO # 0.9 (0.1-0.6); MONO % 13.6 % (1.0-6.0); RBC 4.35 10^6/uL (3.5-6.1); WHITE BLOOD COUNT 6.3 10^3/uL (4.5-11.0)
[2018-07-26 07:45] LABS: ALB/GLOB RATIO 1.2 (1.1-1.8); ALBUMIN 3.8 g/dL (3.0-4.8); CALCIUM 9.5 mg/dL (8.4-10.5)
[2018-07-26] MEDS: Multivitamin Vitamin B Complex (Nephro-Vite) Tab PO SCH (12:39)
--- NOTE | 2018-07-26 14:39 | CP.PCM.PN ---
Subjective - Date & Time of Evaluation Date of Evaluation: 07/26/18 Time of Evaluation: 14:38 - Subjective Subjective: Nephrology Consultation Note: Assessment: Stable dementia pulmonary vasc congestion uncontrolled HTN with urgency Hypertensive Chronic Kidney Disease (I12.0) End stage renal disease (N18.6) dependence on hemodialysis (Z99.2) (MWF) via AVF Anemia (D64.9), Hyperphosphatemia (E83.39), Secondary Hyperparathyroidism (E21.1), HTN (I12.0) Plan: Will plan for HD MWF as ordered. Continue with Nephrovite 1 tab/day. PRBC as needed for anemia. not on UZMA with dialysis as last Hb 11 Continue with phos binders, last phos level 4 BP control with meds as ordered. Patient not on RAAS gomez hence will add losartan Glycemic control, Dialysis consistent diet Further work up/management as per primary team Dose meds/antibiotics (if needed) for ESRD status. Avoid fleets enema/magnesium based laxatives. Neurology following Thanks for allowing me to participate in care of your patient. Will follow patient with you. Please call if any Qs Dr Bertrand Winkler Office: [phone] Chief Complaint; weakness HPI: Pt is a 72 M with hx of ESRD on hemodialysis (MWF) via AVF, last dialysis tuesday, chronic anemia, hyperphosphatemia, secondary hyperparathyroidism, hypertension dementia, AV block s/p PPM presented with complaints of worsening confusion and gen weakness Renal consult requested for ESRD management. ROS: pt unable to provide much reliable hx Cardiovascular: No chest pain. Pulmonary: No shortness of breath Gastrointestinal: denies abdominal pain No nausea. No vomiting. Genitourinary: No pain while urinating. Denies blood in urine. All other negative except as mentioned in HPI Physical Examination: General Appearance: Comfortable, in no acute respiratory distress, co-operative . Vitals reviewed and noted as below Head; Atraumatic, normocephalic ENT: no ulcers no thrush. Tongue is midline. Oropharynx: no rash or ulcers. EYES: Pupils are equal, round and reactive to light accommodation. Eye muscles and extraocular movement intact. Sclera is anicteric. Neck; supple no lymphadenopathy, no thyromegaly or bruit Lungs: Normal respiratory rate/effort. Breath sounds bilateral equal and clear Heart: Normal rate. s1s2 normal. No rub or gallop. Extremities: no edema. No varicose veins Neurological: Patient is alert, awake and forgetful. No focal deficit. Strength bilateral appropriate and equal Skin: Warm and dry. Normal turgor. No rash. Palpitation: Normal elasticity for a ge Abdomen: Abdomen is soft. Bowel sounds +. There is no abdominal tenderness, no guarding/rigidity or organomegaly Psych: lac insight and normal affect/mood MSK: no joint tenderness or swelling. Digits and nails normal, no deformity : kidney or bladder not palpable Access: AVF Labs/imaging reviewed. Past medical history, past surgical history, family history, social history, allergy reviewed and noted as below Family Hx: no hx of CKD. Non contributory Objective - Vital Signs/Intake and Output Vital Signs (last 24 hours): Temp Pulse Resp BP Pulse Ox 97.7 F 69 20 118/78 96 07/26/18 08:12 07/26/18 08:12 07/26/18 08:12 07/26/18 08:12 07/26/18 08:12 Intake and Output: 07/26/18 07/26/18 06:59 18:59 Intake Total 240 Balance 240 - Medications Medications: Current Medications Acetaminophen (Tylenol 325mg Tab) 650 mg PO Q6H PRN PRN Reason: Pain, Mild (1-3) Aspirin (Ecotrin) 81 mg PO DAILY REPLACED BY [facility] Last Admin: 07/26/18 12:39 Dose: 81 mg Atorvastatin Calcium (Lipitor) 10 mg PO DIN REPLACED BY [facility] Last Admin: 07/25/18 18:25 Dose: 10 mg Donepezil HCl (Aricept) 10 mg PO DAILY REPLACED BY [facility] Last Admin: 07/26/18 12:39 Dose: 10 mg Heparin Sodium (Porcine) (Heparin) 5,000 units SC Q8 REPLACED BY [facility]; Protocol Last Admin: 07/26/18 06:05 Dose: 5,000 units Losartan Potassium (Cozaar) 50 mg PO QPM REPLACED BY [facility] Last Admin: 07/25/18 18:25 Dose: 50 mg Montelukast Sodium (Singulair) 10 mg PO DAILY REPLACED BY [facility] Last Admin: 07/26/18 12:40 Dose: 10 mg Ondansetron HCl (Zofran Inj) 4 mg IVP Q6H PRN PRN Reason: Nausea/Vomiting Pantoprazole Sodium (Protonix Ec Tab) 40 mg PO 0600 REPLACED BY [facility] Last Admin: 07/26/18 06:05 Dose: 40 mg Sevelamer HCl (Renagel) 800 mg PO DAILY REPLACED BY [facility] Last Admin: 07/26/18 12:39 Dose: 800 mg Vitamin B Complex/Vit C/Folic Acid (Nephro-Sai) 1 tab PO DAILY REPLACED BY [facility] Last Admin: 07/26/18 12:39 Dose: 1 tab - Labs Labs: 07/26/18 06:10 07/26/18 06:10 PT 12.3 SECONDS (9.4-12.5) 07/23/18 18:15 INR 1.11 07/23/18 18:15 APTT 29.4 Seconds (26.9-38.3) 07/23/18 18:15
--- NOTE | 2018-07-26 15:23 | CP.PCM.PN ---
<Leo Galvez R - Last Filed: 07/26/18 15:18> Subjective - Date & Time of Evaluation Date of Evaluation: 07/26/18 Time of Evaluation: 10:00 - Subjective Subjective: PGY-2 medicine progress note for Dr Gill Patient seen in HD unit. Stated he felt well. Denied discomfort or pain. Seen again after HD tx of 3.5 hours. Again stated he felt well, stated he tolerated HD well. AAOx3. Denied fevers, cp, n/v, sob. Objective - Vital Signs/Intake and Output Vital Signs (last 24 hours): Temp Pulse Resp BP Pulse Ox 97.7 F 69 20 118/78 96 07/26/18 08:12 07/26/18 08:12 07/26/18 08:12 07/26/18 08:12 07/26/18 08:12 Intake and Output: 07/26/18 07/26/18 06:59 18:59 Intake Total 240 Balance 240 - Medications Medications: Current Medications Acetaminophen (Tylenol 325mg Tab) 650 mg PO Q6H PRN PRN Reason: Pain, Mild (1-3) Aspirin (Ecotrin) 81 mg PO DAILY [facility] Last Admin: 07/26/18 12:39 Dose: 81 mg Atorvastatin Calcium (Lipitor) 10 mg PO DIN [facility] Last Admin: 07/25/18 18:25 Dose: 10 mg Donepezil HCl (Aricept) 10 mg PO DAILY [facility] Last Admin: 07/26/18 12:39 Dose: 10 mg Heparin Sodium (Porcine) (Heparin) 5,000 units SC Q8 [facility]; Protocol Last Admin: 07/26/18 06:05 Dose: 5,000 units Losartan Potassium (Cozaar) 50 mg PO QPM [facility] Last Admin: 07/25/18 18:25 Dose: 50 mg Montelukast Sodium (Singulair) 10 mg PO DAILY [facility] Last Admin: 07/26/18 12:40 Dose: 10 mg Ondansetron HCl (Zofran Inj) 4 mg IVP Q6H PRN PRN Reason: Nausea/Vomiting Pantoprazole Sodium (Protonix Ec Tab) 40 mg PO 0600 [facility] Last Admin: 07/26/18 06:05 Dose: 40 mg Sevelamer HCl (Renagel) 800 mg PO DAILY [facility] Last Admin: 07/26/18 12:39 Dose: 800 mg Vitamin B Complex/Vit C/Folic Acid (Nephro-Sai) 1 tab PO DAILY [facility] Last Admin: 07/26/18 12:39 Dose: 1 tab - Labs Labs: 07/26/18 06:10 07/26/18 06:10 PT 12.3 SECONDS (9.4-12.5) 07/23/18 18:15 INR 1.11 07/23/18 18:15 APTT 29.4 Seconds (26.9-38.3) 07/23/18 18:15 - Additional Findings Additional findings: - Constitutional Appears: Well, Non-toxic, No Acute Distress - Head Exam Head Exam: ATRAUMATIC, NORMAL INSPECTION, NORMOCEPHALIC - Eye Exam Eye Exam: EOMI Pupil Exam: PERRL - ENT Exam ENT Exam: Mucous Membranes Moist - Respiratory Exam Respiratory Exam: Clear to Ausculation Bilateral, NORMAL BREATHING PATTERN. absent: Accessory Muscle Use, Chest Wall Tenderness, Decreased Breath Sounds, Rales, Rhonchi, Wheezes, Respiratory Distress - Cardiovascular Exam Cardiovascular Exam: REGULAR RHYTHM, +S1, +S2. absent: Tachycardia, Murmur - GI/Abdominal Exam GI & Abdominal Exam: Soft, Normal Bowel Sounds. absent: Tenderness - Extremities Exam Extremities Exam: AVF with good bruit/thrill. 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 Plan: Altered Mental Status - Possibly 2/2 worsening of chronic dementia vs less likely, occult CVA, uremia, infectious etiology, or nutrient deficiency - CT head negative for any acute intracranial abnormality - EEG normal - Orthostatics test negative - Procal 0.68, elevated - B12, folate levels wnl - PT recommends continued therapy and [facility] - Neurology, Dr. Reed, following Cognitive Decline, Chronic - Home aricept increased to 10mg po qd by neurology Subclinical Hyperthyroidism - TSH low at 0.12 - Free T4 1.65, Total T3 0.93 - No treatment indicated at this time Severe Pulmonary HTN - Identified on TTE completed for admission in 02/2014 - ECHO: EF 29%, mild concentric LVH, grade I-abnormal relaxation pattern, no LV thrombus noted, mild AR, mild MR CKD on HD - Patient normally gets MWF dialysis, will arrange for inpatient HD - Nephrology following Hypertension - Added losartan 50mg PO QD PPX DVT: SC heparin GI: protonix Dispo: Discharge planning to [facility] - pending placement Patient plan reviewed and discussed with Dr. Gill <Maggie Gill - Last Filed: 07/28/18 08:04> Objective - Vital Signs/Intake and Output Vital Signs (last 24 hours): Temp Pulse Resp BP Pulse Ox 98.6 F 76 18 125/76 98 07/27/18 16:06 07/27/18 16:06 07/27/18 16:06 07/27/18 16:06 07/27/18 16:06 - Labs Labs: 07/27/18 06:15 07/27/18 06:15 PT 12.3 SECONDS (9.4-12.5) 07/23/18 18:15 INR 1.11 07/23/18 18:15 APTT 29.4 Seconds (26.9-38.3) 07/23/18 18:15 Attending/Attestation - Attestation I have personally seen and examined this patient.: Yes I have fully participated in the care of the patient.: Yes I have reviewed all pertinent clinical information, including history, physical exam and plan: Yes Notes (Text): 07/28/18 08:04 Medical record note made by the resident after discussion with my direction and input after the patient was personally seen and examined by me. I have reviewed the chart and agree that the record accurately reflects by personal performance of the history, physical exam, data review, and medical decision-making, in the course for the patient. I have also personally directed the plan of care.
[2018-07-26] MEDS ORDERED: Sodium Chloride 0.9% 250 ML IV SCH ×2 (17:15→17:30)
[2018-07-27] MEDS: Pantoprazole 40 mg EC Tab PO SCH (05:46)
[2018-07-27 06:30] LABS: BASO # 0.02 K/mm3 (0.0-2.0); BASO % 0.3 % (0.0-3.0); EOS # 0.2 (0.0-0.7); EOS % 2.3 % (1.5-5.0); HEMOGLOBIN 12.1 g/dL (14.0-18.0); LYMPH # 1.7 (1.2-3.4); LYMPH % 23.1 % (22.0-35.0); MEAN CELL VOLUME 82.4 fl (80.0-105.0); MEAN CORPUSCULAR HEMOGLOBIN 26.3 pg (25.0-35.0); MEAN CORPUSCULAR HGB CONC 31.9 g/dl (31.0-37.0); MEAN PLATELET VOLUME 10.9 fl (7.0-11.0); MONO % 13.2 % (1.0-6.0); RBC 4.6 10^6/uL (3.5-6.1); RED CELL DISTRIBUTION WIDTH 17.7 % (11.5-14.5); WHITE BLOOD COUNT 7.4 10^3/uL (4.5-11.0)
[2018-07-27 06:57] LABS: ALB/GLOB RATIO 1.3 (1.1-1.8); ALBUMIN 4.1 g/dL (3.0-4.8); CALCIUM 9.8 mg/dL (8.4-10.5)
[2018-07-27] MEDS: Multivitamin Vitamin B Complex (Nephro-Vite) Tab PO SCH (09:42)
--- NOTE | 2018-07-27 14:29 | CP.PCM.DIS ---
<Moreno Frausto - Last Filed: 07/27/18 14:06> Provider - Provider Date of Admission: 07/24/18 10:02 Attending physician: Maggie Gill MD Consults: 07/23/18 21:50 Neurology Consult Routine Comment: Consulting Provider: Mark Reed Consulting Physician: Mark Reed Reason for Consult: altered mental status, possible CVA vs seizure 07/23/18 21:57 Nephrology Consult Routine Comment: Consulting Provider: Jesus Allen Consulting Physician: Jesus Allen Reason for Consult: previously known to Dr. Allen, altered mental status, need dialysis Time Spent in preparation of Discharge (in minutes): 60 Hospital Course - Lab Results Lab Results: Most Recent Lab Values WBC 7.4 10^3/uL (4.5-11.0) 07/27/18 06:15 RBC 4.60 10^6/uL (3.5-6.1) 07/27/18 06:15 Hgb 12.1 g/dL (14.0-18.0) L 07/27/18 06:15 Hct 37.9 % (42.0-52.0) L 07/27/18 06:15 MCV 82.4 fl (80.0-105.0) 07/27/18 06:15 MCH 26.3 pg (25.0-35.0) 07/27/18 06:15 MCHC 31.9 g/dl (31.0-37.0) 07/27/18 06:15 RDW 17.7 % (11.5-14.5) H 07/27/18 06:15 Plt Count 228 10^3/uL (120.0-450.0) 07/27/18 06:15 MPV 10.9 fl (7.0-11.0) 07/27/18 06:15 Neut % (Auto) 61.1 % (50.0-68.0) 07/27/18 06:15 Lymph % (Auto) 23.1 % (22.0-35.0) 07/27/18 06:15 [place] % (Auto) 13.2 % (1.0-6.0) H 07/27/18 06:15 Eos % (Auto) 2.3 % (1.5-5.0) 07/27/18 06:15 Baso % (Auto) 0.3 % (0.0-3.0) 07/27/18 06:15 Lymph # (Auto) 1.7 (1.2-3.4) 07/27/18 06:15 [place] # (Auto) 1.0 (0.1-0.6) H 07/27/18 06:15 Eos # (Auto) 0.2 (0.0-0.7) 07/27/18 06:15 Baso # (Auto) 0.02 K/mm3 (0.0-2.0) 07/27/18 06:15 Absolute Neuts (auto) 4.55 (1.4-6.5) 07/27/18 06:15 PT 12.3 SECONDS (9.4-12.5) 07/23/18 18:15 INR 1.11 07/23/18 18:15 APTT 29.4 Seconds (26.9-38.3) 07/23/18 18:15 pCO2 40 mm/Hg (35-45) 07/24/18 04:59 pO2 85.0 mm/Hg (80-100) 07/24/18 04:59 HCO3 29.1 mmol/L (21-28) H 07/24/18 04:59 ABG pH 7.47 (7.35-7.45) H 07/24/18 04:59 ABG Total CO2 30.3 mmol.L (22-28) H 07/24/18 04:59 ABG O2 Saturation 97.5 % (95-98) 07/24/18 04:59 ABG O2 Content 14.4 ML/dl (15-23) L 07/24/18 04:59 ABG Base Excess 5.0 mmol/L (-2.0-3.0) H 07/24/18 04:59 ABG Hemoglobin 10.7 g/dL (11.7-17.4) L 07/24/18 04:59 ABG Carboxyhemoglobin 1.5 % (0.5-1.5) 07/24/18 04:59 POC ABG HHb (Measured) 2.4 % (0-5) 07/24/18 04:59 ABG Methemoglobin 1.0 % (0.0-3.0) 07/24/18 04:59 ABG O2 Capacity 14.8 mL/dl (16-24) L 07/24/18 04:59 Hgb O2 Saturation 95.1 % (95.0-98.0) 07/24/18 04:59 FiO2 21.0 % 07/24/18 04:59 Sodium 137 mmol/L (132-148) 07/27/18 06:15 Potassium 4.1 mmol/L (3.6-5.0) 07/27/18 06:15 Chloride 93 mmol/L (98-107) L 07/27/18 06:15 Carbon Dioxide 30 mmol/L (21-33) 07/27/18 06:15 Anion Gap 18 (10-20) 07/27/18 06:15 BUN 38 mg/dL (7-21) H 07/27/18 06:15 Creatinine 8.3 mg/dl (0.8-1.5) H* D 07/27/18 06:15 Est GFR ( Amer) 8 07/27/18 06:15 Est GFR (Non-Af Amer) 6 07/27/18 06:15 POC Glucose (mg/dL) 125 mg/dL (65-110) H 07/24/18 21:11 Random Glucose 78 mg/dL (70-110) 07/27/18 06:15 Hemoglobin A1c 5.1 % (4.2-6.5) 07/24/18 07:00 Calcium 9.8 mg/dL (8.4-10.5) 07/27/18 06:15 Phosphorus 4.0 mg/dL (2.5-4.5) 07/24/18 07:00 Magnesium 2.3 mg/dL (1.7-2.2) H 07/24/18 07:00 Total Bilirubin 0.4 mg/dL (0.2-1.3) 07/27/18 06:15 AST 28 U/L (17-59) 07/27/18 06:15 ALT 11 U/L (7-56) 07/27/18 06:15 Alkaline Phosphatase 79 U/L (38-126) 07/27/18 06:15 Lactate Dehydrogenase 428 U/L (333-699) 07/23/18 18:15 Total Creatine Kinase 52 U/L (35-230) 07/23/18 18:15 Troponin I 0.11 ng/mL 07/24/18 07:00 Total Protein 7.3 g/dL (5.8-8.3) 07/27/18 06:15 Albumin 4.1 g/dL (3.0-4.8) 07/27/18 06:15 Globulin 3.2 gm/dL 07/27/18 06:15 Albumin/Globulin Ratio 1.3 (1.1-1.8) 07/27/18 06:15 Triglycerides 94 mg/dL (35-160) 07/24/18 07:00 Cholesterol 164 mg/dL (130-200) 07/24/18 07:00 LDL Cholesterol Direct 51 mg/dL (0-129) 07/24/18 07:00 HDL Cholesterol 55 mg/dL (29-60) 07/24/18 07:00 Vitamin B12 859 pg/mL (239-931) 07/24/18 07:00 Folate 17.4 ng/mL 07/24/18 07:00 Procalcitonin 0.68 NG/ML (0.19-0.49) H 07/24/18 07:00 Free T4 1.65 ng/dL (0.78-2.19) 07/25/18 06:00 Total T3 0.93 ng/mL (0.97-1.69) L 07/25/18 06:00 TSH 3rd Generation 0.12 mIU/mL (0.46-4.68) L 07/25/18 06:00 - Hospital Course Hospital Course: 72 year old male, with past medical history of 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 On examination, patient is alert to self and was able to recall the month but unable to recall the year and was not oriented to situation. History was obtained by speaking with daughter and EMR review. Per patient's daughter, patient had hemodialysis last Tuesday and presented to PMD with concern of worsening weakness/confusion on Tuesday. Since then, his generalized weakness/confusion worsened. Patient was admitted for altered mental status and weakness. In the emergency department, a CT head was done, negative for any acute intracranial abnormality. Neuology was consulted who ordered an EEG which was shown to be normal. Neurology also increased Aricept to 10mg daily. Troponins were negative. Nursing swallow screen was done prior to starting a diet which patient passed. Aspiration and fall precautions placed. Upon admission, labs were ordered and patient found to have subclinical hyperthyroidism, however no treatment indicated at this time. Patient instructed to follow up outpatient in 6 weeks to recheck thyroid function. Patient has a history of pulmonary hypertension noted from previous TTE. A repeat ECHO was done showing an EF of 29%. Nephrology was consulted because of patient's ESRD. Patient received inpatient hemodialysis as per his usual schedule. Patient was started on Losartan 20mg to be given on non-hemodialysis days. Physical therapy evaluated the patient and recommended patient go to subacute rehab for further management. Social work and case management found bed at [facility] where patient will be discharged. Patient instructed to follow up with PMD, hide buyer, and acid concentrator/drapery examiner within 7 days of discharge. Patient instructed to resume hemodiaylsis and home medications, in addition to newly added Losartan 25mg PO AM on tuesdays, , and saturdays and increased dosage of Aricept 10mg QD. Patient acknowledged and verbalized understand of treatment plan. Instructions were provided. All questions and concerns were answered. Above is a brief summary, for a detailed hospital encounter please refer to medical records. - Date & Time of H&P Date of H&P: 07/23/18 Time of H&P: 22:08 Discharge Exam - Head Exam Head Exam: ATRAUMATIC, NORMAL INSPECTION, NORMOCEPHALIC - Eye Exam Eye Exam: EOMI - ENT Exam ENT Exam: Mucous Membranes Moist - Respiratory Exam Respiratory Exam: Clear to PA & Lateral, NORMAL BREATHING PATTERN. absent: Wheezes, Respiratory Distress - Cardiovascular Exam Cardiovascular Exam: REGULAR RHYTHM. absent: Tachycardia - GI/Abdominal Exam GI & Abdominal Exam: Normal Bowel Sounds, Soft. absent: Tenderness - Extremities Exam Extremities exam: normal inspection, pedal pulses present - Neurological Exam Neurological exam: Alert - Psychiatric Exam Psychiatric exam: Normal Affect, Normal Mood - Skin Skin Exam: Dry, Intact, Normal Color, Warm Discharge Plan - Discharge Medications Prescriptions: Atorvastatin [Lipitor] 10 mg PO DIN #30 tab Donepezil [Aricept] 10 mg PO DAILY #30 tab Losartan [Cozaar] 25 mg PO TTS #30 tab - Follow Up Plan Condition: FAIR Disposition: TRANSF TO SNF Instructions: Chronic Kidney Disease (DC), Dialysis and Diet Additional Instructions: Please follow-up with your Primary Medical Doctor, Dr Rosa, within 7 days of discharge. Please follow-up with your hide buyer, Dr Allen, within 7 days and resume hemodialysis sessions at his discretion. Please note you have Sub-clinical Hyperthyroidism - you do not need medications at this time however you should have your TSH/T4/T3 checked in 6 weeks by your PMD Please follow-up with your acid concentrator/drapery examiner, Dr Garcia, as you should have your pacemaker checked/interrogated by him. To control your blood pressure, you were started on Losartan 25mg take 1 tablet every morning at 10AM on Tuesdays, , and Saturdays. Your Aricept was increased from 5mg to 10mg. Take Aricept 10mg once a day at 10AM. Please resume your home medications as usual. In summary, your home medications are Neurontin 100mg once a day, Singulair 10mg once a day, Gauri-muna tablet once a day, Renvela 800mg once a day, Lipitor 10mg at bedtime, Aspirin 81mg once a day, Aricept 10mg once a day, Losartan 2mg every Tuesday, and Tuesday If symptoms worsen, promptly go to your nearest emergency department. Referrals: Heriberto Rosa MD [Non-Staff] - 7 Days Jesus Allen MD [Staff Provider] - 7 Days <Maggie Gill - Last Filed: 07/28/18 08:02> Provider - Provider Date of Admission: 07/24/18 10:02 Attending physician: Maggie Gill MD Consults: 07/23/18 21:50 Neurology Consult Routine Comment: Consulting Provider: Mark Reed Consulting Physician: Mark Reed Reason for Consult: altered mental status, possible CVA vs seizure 07/23/18 21:57 Nephrology Consult Routine Comment: Consulting Provider: Jesus Allen Consulting Physician: Jesus Allen Reason for Consult: previously known to Dr. Allen, altered mental status, need dialysis Hospital Course - Lab Results Lab Results: Most Recent Lab Values WBC 7.4 10^3/uL (4.5-11.0) 07/27/18 06:15 RBC 4.60 10^6/uL (3.5-6.1) 07/27/18 06:15 Hgb 12.1 g/dL (14.0-18.0) L 07/27/18 06:15 Hct 37.9 % (42.0-52.0) L 07/27/18 06:15 MCV 82.4 fl (80.0-105.0) 07/27/18 06:15 MCH 26.3 pg (25.0-35.0) 07/27/18 06:15 MCHC 31.9 g/dl (31.0-37.0) 07/27/18 06:15 RDW 17.7 % (11.5-14.5) H 07/27/18 06:15 Plt Count 228 10^3/uL (120.0-450.0) 07/27/18 06:15 MPV 10.9 fl (7.0-11.0) 07/27/18 06:15 Neut % (Auto) 61.1 % (50.0-68.0) 07/27/18 06:15 Lymph % (Auto) 23.1 % (22.0-35.0) 07/27/18 06:15 [place] % (Auto) 13.2 % (1.0-6.0) H 07/27/18 06:15 Eos % (Auto) 2.3 % (1.5-5.0) 07/27/18 06:15 Baso % (Auto) 0.3 % (0.0-3.0) 07/27/18 06:15 Lymph # (Auto) 1.7 (1.2-3.4) 07/27/18 06:15 [place] # (Auto) 1.0 (0.1-0.6) H 07/27/18 06:15 Eos # (Auto) 0.2 (0.0-0.7) 07/27/18 06:15 Baso # (Auto) 0.02 K/mm3 (0.0-2.0) 07/27/18 06:15 Absolute Neuts (auto) 4.55 (1.4-6.5) 07/27/18 06:15 PT 12.3 SECONDS (9.4-12.5) 07/23/18 18:15 INR 1.11 07/23/18 18:15 APTT 29.4 Seconds (26.9-38.3) 07/23/18 18:15 pCO2 40 mm/Hg (35-45) 07/24/18 04:59 pO2 85.0 mm/Hg (80-100) 07/24/18 04:59 HCO3 29.1 mmol/L (21-28) H 07/24/18 04:59 ABG pH 7.47 (7.35-7.45) H 07/24/18 04:59 ABG Total CO2 30.3 mmol.L (22-28) H 07/24/18 04:59 ABG O2 Saturation 97.5 % (95-98) 07/24/18 04:59 ABG O2 Content 14.4 ML/dl (15-23) L 07/24/18 04:59 ABG Base Excess 5.0 mmol/L (-2.0-3.0) H 07/24/18 04:59 ABG Hemoglobin 10.7 g/dL (11.7-17.4) L 07/24/18 04:59 ABG Carboxyhemoglobin 1.5 % (0.5-1.5) 07/24/18 04:59 POC ABG HHb (Measured) 2.4 % (0-5) 07/24/18 04:59 ABG Methemoglobin 1.0 % (0.0-3.0) 07/24/18 04:59 ABG O2 Capacity 14.8 mL/dl (16-24) L 07/24/18 04:59 Hgb O2 Saturation 95.1 % (95.0-98.0) 07/24/18 04:59 FiO2 21.0 % 07/24/18 04:59 Sodium 137 mmol/L (132-148) 07/27/18 06:15 Potassium 4.1 mmol/L (3.6-5.0) 07/27/18 06:15 Chloride 93 mmol/L (98-107) L 07/27/18 06:15 Carbon Dioxide 30 mmol/L (21-33) 07/27/18 06:15 Anion Gap 18 (10-20) 07/27/18 06:15 BUN 38 mg/dL (7-21) H 07/27/18 06:15 Creatinine 8.3 mg/dl (0.8-1.5) H* D 07/27/18 06:15 Est GFR ( Amer) 8 07/27/18 06:15 Est GFR (Non-Af Amer) 6 07/27/18 06:15 POC Glucose (mg/dL) 125 mg/dL (65-110) H 07/24/18 21:11 Random Glucose 78 mg/dL (70-110) 07/27/18 06:15 Hemoglobin A1c 5.1 % (4.2-6.5) 07/24/18 07:00 Calcium 9.8 mg/dL (8.4-10.5) 07/27/18 06:15 Phosphorus 4.0 mg/dL (2.5-4.5) 07/24/18 07:00 Magnesium 2.3 mg/dL (1.7-2.2) H 07/24/18 07:00 Total Bilirubin 0.4 mg/dL (0.2-1.3) 07/27/18 06:15 AST 28 U/L (17-59) 07/27/18 06:15 ALT 11 U/L (7-56) 07/27/18 06:15 Alkaline Phosphatase 79 U/L (38-126) 07/27/18 06:15 Lactate Dehydrogenase 428 U/L (333-699) 07/23/18 18:15 Total Creatine Kinase 52 U/L (35-230) 07/23/18 18:15 Troponin I 0.11 ng/mL 07/24/18 07:00 Total Protein 7.3 g/dL (5.8-8.3) 07/27/18 06:15 Albumin 4.1 g/dL (3.0-4.8) 07/27/18 06:15 Globulin 3.2 gm/dL 07/27/18 06:15 Albumin/Globulin Ratio 1.3 (1.1-1.8) 07/27/18 06:15 Triglycerides 94 mg/dL (35-160) 07/24/18 07:00 Cholesterol 164 mg/dL (130-200) 07/24/18 07:00 LDL Cholesterol Direct 51 mg/dL (0-129) 07/24/18 07:00 HDL Cholesterol 55 mg/dL (29-60) 07/24/18 07:00 Vitamin B12 859 pg/mL (239-931) 07/24/18 07:00 Folate 17.4 ng/mL 07/24/18 07:00 Procalcitonin 0.68 NG/ML (0.19-0.49) H 07/24/18 07:00 Free T4 1.65 ng/dL (0.78-2.19) 07/25/18 06:00 Total T3 0.93 ng/mL (0.97-1.69) L 07/25/18 06:00 TSH 3rd Generation 0.12 mIU/mL (0.46-4.68) L 07/25/18 06:00 Attending/Attestation - Attestation I have personally seen and examined this patient.: Yes I have fully participated in the care of the patient.: Yes I have reviewed all pertinent clinical information, including history, physical exam and plan: Yes Notes (Text): 07/28/18 07:59 Medical record note made by the resident after discussion with my direction and input after the patient was personally seen and examined by me. I have reviewed the chart and agree that the record accurately reflects by personal performance of the history, physical exam, data review, and medical decision-making, in the course for the patient. I have also personally directed the plan of care. 72M, PMH of ESRD on MWF HD, SP Pacemaker for on 3rd degree AV block, HTN and dementia was admitted for confusion and weakness. CT head was negative, there was no focal deficit. There is no evidence of infection, Patient is back to his base line.Etiology is due to dementia, Aricept dose is increase. Hypertensive medications were adjusted.Blood pressure is better controlled. PT has recommended [facility],He will be discharged to TCU for rehabilitation.
--- NOTE | 2018-07-27 15:05 | CP.PCM.PN ---
Subjective - Date & Time of Evaluation Date of Evaluation: 07/27/18 Time of Evaluation: 15:04 - Subjective Subjective: Nephrology Consultation Note: Assessment: Stable dementia pulmonary vasc congestion uncontrolled HTN with urgency Hypertensive Chronic Kidney Disease (I12.0) End stage renal disease (N18.6) dependence on hemodialysis (Z99.2) (MWF) via AVF Anemia (D64.9), Hyperphosphatemia (E83.39), Secondary Hyperparathyroidism (E21.1), HTN (I12.0) sys CHF LVEf 30% Plan: Will plan for HD MWF as ordered. Continue with Nephrovite 1 tab/day. PRBC as needed for anemia. not on UZMA with dialysis as last Hb 11 Continue with phos binders, last phos level 4 BP control with meds as ordered. Patient not on RAAS gomez hence will add losartan in view of CHF Glycemic control, Dialysis consistent diet Further work up/management as per primary team Dose meds/antibiotics (if needed) for ESRD status. Avoid fleets enema/magnesium based laxatives. Neurology following CHF optimization pt for d/c to [facility] Thanks for allowing me to participate in care of your patient. Will follow patient with you. Please call if any Qs. had d/w team Dr Bertrand Winkler Office: [phone] Chief Complaint; weakness HPI: Pt is a 72 M with hx of ESRD on hemodialysis (MWF) via AVF, last dialysis tuesday, chronic anemia, hyperphosphatemia, secondary hyperparathyroidism, hypertension dementia, AV block s/p PPM presented with complaints of worsening confusion and gen weakness Renal consult requested for ESRD management. ROS: pt unable to provide much reliable hx Cardiovascular: No chest pain. Pulmonary: No shortness of breath Gastrointestinal: denies abdominal pain No nausea. No vomiting. Genitourinary: No pain while urinating. Denies blood in urine. All other negative except as mentioned in HPI Physical Examination: General Appearance: Comfortable, in no acute respiratory distress, co-operative . Vitals reviewed and noted as below Head; Atraumatic, normocephalic ENT: no ulcers no thrush. Tongue is midline. Oropharynx: no rash or ulcers. EYES: Pupils are equal, round and reactive to light accommodation. Eye muscles and extraocular movement intact. Sclera is anicteric. Neck; supple no lymphadenopathy, no thyromegaly or bruit Lungs: Normal respiratory rate/effort. Breath sounds bilateral equal and clear Heart: Normal rate. s1s2 normal. No rub or gallop. Extremities: no edema. No varicose veins Neurological: Patient is alert, awake and forgetful. No focal deficit. Strength bilateral appropriate and equal Skin: Warm and dry. Normal turgor. No rash. Palpitation: Normal elasticity for age Abdomen: Abdomen is soft. Bowel sounds +. There is no abdominal tenderness, no guarding/rigidity or organomegaly Psych: lac insight and normal affect/mood MSK: no joint tenderness or swelling. Digits and nails normal, no deformity : kidney or bladder not palpable Access: AVF Labs/imaging reviewed. Past medical history, past surgical history, family history, social history, allergy reviewed and noted as below Family Hx: no hx of CKD. Non contributory Objective - Vital Signs/Intake and Output Vital Signs (last 24 hours): Temp Pulse Resp BP Pulse Ox 97.8 F 88 20 118/72 99 07/27/18 08:02 07/27/18 13:14 07/27/18 08:02 07/27/18 13:14 07/27/18 08:02 Intake and Output: 07/27/18 07/27/18 06:59 18:59 Intake Total 1680 Output Total 600 Balance 1080 - Medications Medications: Current Medications Acetaminophen (Tylenol 325mg Tab) 650 mg PO Q6H PRN PRN Reason: Pain, Mild (1-3) Aspirin (Ecotrin) 81 mg PO DAILY COUNTS INCLUDE 234 BEDS AT THE [facility] Last Admin: 07/27/18 09:42 Dose: 81 mg Atorvastatin Calcium (Lipitor) 10 mg PO DIN COUNTS INCLUDE 234 BEDS AT THE [facility] Last Admin: 07/26/18 18:27 Dose: 10 mg Donepezil HCl (Aricept) 10 mg PO DAILY COUNTS INCLUDE 234 BEDS AT THE [facility] Last Admin: 07/27/18 09:42 Dose: 10 mg Heparin Sodium (Porcine) (Heparin) 5,000 units SC Q8 COUNTS INCLUDE 234 BEDS AT THE [facility]; Protocol Last Admin: 07/27/18 13:14 Dose: 5,000 units Losartan Potassium (Cozaar) 25 mg PO TTS COUNTS INCLUDE 234 BEDS AT THE [facility] Last Admin: 07/27/18 13:14 Dose: 25 mg Montelukast Sodium (Singulair) 10 mg PO DAILY COUNTS INCLUDE 234 BEDS AT THE [facility] Last Admin: 07/27/18 09:42 Dose: 10 mg Ondansetron HCl (Zofran Inj) 4 mg IVP Q6H PRN PRN Reason: Nausea/Vomiting Pantoprazole Sodium (Protonix Ec Tab) 40 mg PO 0600 COUNTS INCLUDE 234 BEDS AT THE [facility] Last Admin: 07/27/18 05:46 Dose: 40 mg Sevelamer HCl (Renagel) 800 mg PO DAILY COUNTS INCLUDE 234 BEDS AT THE [facility] Last Admin: 07/27/18 09:42 Dose: 800 mg Vitamin B Complex/Vit C/Folic Acid (Nephro-Sai) 1 tab PO DAILY COUNTS INCLUDE 234 BEDS AT THE [facility] Last Admin: 07/27/18 09:42 Dose: 1 tab - Labs Labs: 07/27/18 06:15 07/27/18 06:15 PT 12.3 SECONDS (9.4-12.5) 07/23/18 18:15 INR 1.11 07/23/18 18:15 APTT 29.4 Seconds (26.9-38.3) 07/23/18 18:15
[2018-07-27 16:07] VITALS: BP 125/76; PULSE 76; RESP 18; TEMP 98.6; O2SAT 98
== END 2018-07-27 17:09 | DRG 884 ==
LOC: ED 17:36 → ERH 20:55 → 2RNO 21:55 → OBSVTOIN 07-24 10:02 → 2RNO 07-24 21:07 → 3RNO 07-25 22:31
PROVIDERS: ADMIT Hospitalist; ATTEND Internal Medicine
PROC: 5A1D70Z Performance of Urinary Filtration, Intermittent, Less than 6 Hours Per Day (ICD-10-PCS; principal; 2018-07-24)
PROC: 5A1D70Z Performance of Urinary Filtration, Intermittent, Less than 6 Hours Per Day (ICD-10-PCS; 2018-07-26)
DX: F03.90 Unspecified dementia, unspecified severity, without behavioral disturbance, psychotic disturbance, mood disturbance, and anxiety (principal); N18.6 End stage renal disease; I13.2 Hypertensive heart and chronic kidney disease with heart failure and with stage 5 chronic kidney disease, or end stage renal disease; I50.30 Unspecified diastolic (congestive) heart failure; N25.81 Secondary hyperparathyroidism of renal origin; I44.2 Atrioventricular block, complete; I16.0 Hypertensive urgency; R41.82 Altered mental status, unspecified; R42 Dizziness and giddiness; I27.20 Pulmonary hypertension, unspecified; N40.0 Benign prostatic hyperplasia without lower urinary tract symptoms; D64.9 Anemia, unspecified; E83.39 Other disorders of phosphorus metabolism; Z99.2 Dependence on renal dialysis; Z95.0 Presence of cardiac pacemaker; Z85.46 Personal history of malignant neoplasm of prostate; Z79.82 Long term (current) use of aspirin; Z87.891 Personal history of nicotine dependence